=== PATIENT | female | born 1985 | race Caucasian/White ===

== ENCOUNTER 2020-08-10 16:06 | Emergency (ER) | payer BC, SELFPAY ==
--- NOTE | ~2020-08-10 | CT_ITS ---
EXAMINATION: CT abdomen pelvis w con INDICATION: Diffuse abdominal pain, nausea TECHNIQUE: Computed tomographic images of the abdomen and pelvis were obtained after the administrati on of 100 cc of Omnipaque 350 intravenous contrast. The dose-length product (DLP) was 375.66 mGy-cm. Automated exposure control and iterative reconstruction technique were employed. COMPARISON: 09/05/2013 FINDINGS: The lung bases are clear. The heart size is normal. The liver, spleen, pancreas, and adrena l glands are normal. There is mild enlargement of the proximal common bile duct which measures up to 8 mm. There is a greater than normal mucosal enhancement of the gallbladder without pericholecystic i nflammatory change identified to suggest cholecystitis. The kidneys are unremarkable. No pathological ly enlarged abdominal or pelvic lymph nodes are identified. There is no free intraperitoneal gas or e vidence of bowel obstruction. A large volume of colonic stool is present. The appendix is normal. The re is a tiny fat-containing umbilical hernia. IMPRESSION: 1. Mild enlargement of the common bile duct of unclear etiology. Reviewed, dictated and finalized at location A. 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
[2020-08-10 16:26] VITALS: BP 113/84; PULSE 103; RESP 17; TEMP 36.4; O2SAT 96
[2020-08-10 16:53] LABS: Basophils Percent Auto 0.4 % (0.2-1.2); Eosinophils Percent Auto 0.3 % (0-4.4); Hematocrit 42.1 % (37.0-47.0); Hemoglobin 13.8 g/dL (12.0-15.0); Immature Granulocyte Absolute 0.02 K/mm3 (0.00-0.031); Immature Granulocyte Percent A 0.3 % (0-0.5); Lymphocytes Absolute Auto 1.89 K/mm3 (0.9-3.2); Lymphocytes Percent Auto 27.5 % (18.3-44.2); Mean Corpuscular HGB Conc 32.8 g/dl (32-36); Mean Corpuscular Hemoglobin 29.1 pg (26-34); Mean Corpuscular Volume 88.8 fl (80-100); Mean Platelet Volume 9.7 fl (7.4-10.4); Monocytes Absolute Auto 0.6 K/mm3 (0.1-0.6); Monocytes Percent Auto 8.4 % (2.6-8.5); Neutrophils Absolute Auto 4.3 K/mm3 (1.3-6.7); Neutrophils Percent Auto 63.1 % (45.5-73.1); Platelet Count Result 266 k/mm3 (150-375); Red Blood Count 4.74 M/mm3 (4.2-5.4); Red Cell Distribution Width 12.6 % (11.5-14.5); White Blood Count 6.9 K/mm3 (4.5-10.0)
[2020-08-10 17:08] LABS: Alanine Aminotransferase 18 U/L (4-35); Albumin Level 4.5 g/dL (3.5-5.1); Alkaline Phosphatase 49 U/L (38-126); Anion Gap 10 mmol/L (8-16); Aspartate Amino Transferase 24 U/L (14-36); Bilirubin,Total 0.4 mg/dL (0.2-1.3); Blood Urea Nitrogen 11 mg/dL (7-17); Calcium 9.6 mg/dL (8.4-10.2); Carbon Dioxide 28 mmol/L (22-30); Chloride 104 mmol/L (98-107); Estimated CRCL calculation 63 ml/min; Estimated Glomerular Filt Rate > 60; Glucose 101 mg/dL (65-105); Lipase 78 U/L (23-300); Potassium 4.2 mmol/L (3.4-5.0); Sodium 142 mmol/L (137-145)
[2020-08-10 18:17] LABS: Add Urine Microscopic? YES; Appearance Urine Clear (Clear); Bacteria Urine Trace /hpf; Bilirubin Urine Negative (Negative); Blood Urine Negative (Negative); Color Urine Yellow (Yellow); Glucose Urine UA Negative (Negative); Ketones Urine Negative (Negative); Leukocyte Esterase Ur Negative LEU/UL (Negative); Mucus Urine Rare /lpf; Nitrate Urine Negative (Negative); Protein Urine 1+ mg/dL (Negative); Specific Grav Ur 1.023 (1.001-1.035); Squamous Epithelial Cell Urine Few /hpf (Few); Urobilinogen Urine Negative mg/dL (<2.0); WBC Urine 0-3 /hpf
[2020-08-10] MEDS: ONDANSETRON INJ 4 MG/2 ML VIAL IV PUSH (18:49)
[2020-08-10 18:50] VITALS: BP 105/77; PULSE 73; RESP 16
--- NOTE | 2020-08-10 19:45 | ED.ABDPAIN ---
HPI - Abdominal Pain General Chief Complaint: Abdominal Pain <Jac Jurado PA-C - Last Filed: 08/10/20 20:36> Stated Complaint: stomach pain, blood in stool <Jac Jurado PA-C - Last Filed: 08/10/20 20:36> Time Seen by Provider: 08/10/20 16:52 <Jac Jurado PA-C - Last Filed: 08/10/20 20:36> Source: patient <JAQUELIN Araujo Last Filed: 08/10/20 20:36> Mode of arrival: ambulatory <JAQUELIN Araujo Last Filed: 08/10/20 20:36> Limitations: no limitations <JAQUELIN Araujo Last Filed: 08/10/20 20:36> History of Present Illness HPI narrative: Patient presents with chief complaint of epigastric pain and nausea for the past 2 days. Patient states she is also has had 2 stools where she noticed bright red blood in the stool and with wiping. Patient denies weakness or dizziness. Patient denies fevers, chills, vomiting. Patient denies having diarrhea. Patient reports a history of hemorrhoids but states she does not have any active at this time. Patient denies any emergent symptoms. <Jac Jurado PA-C - Last Filed: 08/10/20 20:36> Related Data Allergies/Adverse Reactions: Allergies Allergy/AdvReac Type Severity Reaction Status Date / Time vancomycin Allergy Unknown Verified 11/25/12 10:50 <Jac Jurado PA-C - Last Filed: 08/10/20 20:36> Review of Systems Review of Systems: Narrative: CONSTITUTIONAL: Denies fever, chills, or sweats. EYES: Denies visual changes, redness, or discharge. ENT: Denies rhinorrhea, congestion, sore throat, or otalgia. CARDIOVASCULAR: Denies chest pain, palpitations, or edema. RESPIRATORY: Denies cough or dyspnea. GASTROINTESTINAL: Reports abdominal pain, nausea, vomiting, and blood in stool GENITOURINARY: Denies dysuria or hematuria. SKIN: Denies rash or itching. MUSCULOSKELETAL: Denies back pain, joint pain, or myalgia. NEUROLOGIC: Denies headache, numbness, dizziness, or weakness. PSYCHIATRIC: Denies anxiety or depression. <Jac Jurado PA-C - Last Filed: 08/10/20 20:36> PMFSH Family History Family History: Family History (Updated 03/10/16 @ 23:21 by DOCTOR UNKNOWN) Mother Patient's mother is in good health Hypertension Family history of elevated blood lipids Family history of alcoholism Family history of chronic obstructive pulmonary disease Sibling Patient's brother is in good health Father Family history of diabetes mellitus in first degree relative Grandparent Family history of malignant neoplasm of breast <Jac Jurado PA-C - Last Filed: 08/10/20 20:36> Social History Social History: Social History Smoking status: Never smoker Alcohol intake: never <Jac Jurado PA-C - Last Filed: 08/10/20 20:36> Exam Narrative: Exam Narrative: GENERAL: Well-appearing, well-nourished, and in no acute distress. HEAD: Normocephalic, atraumatic. EYES: PERRLA and EOMI. CHEST: Clear to auscultation. No respiratory distress. No wheezes rales or rhonchi HEART: Regular rate and rhythm. No murmur heard. Normal peripheral pulses. Rectal exam does not show external hemorrhoids. Glove is not visually bloody however Hemoccult was positive. No bleeding observed from rectum. ABDOMEN: Soft, mild epigastric tenderness with palpation, nondistended, normal active bowel sounds. EXTREMITIES: Normal range of motion. No edema. SKIN: Warm, dry, no rash. NEURO: No focal deficits. Alert and oriented x3. PSYCH: Normal mood and affect. <Jac Jurado PA-C - Last Filed: 08/10/20 20:36> Course [employer]/PA Physician Supervision For this patient encounter, I reviewed the REPA[employer] or PA documentation, treatment plan, and medical decision making; and I had [id number] time with this patient. <Linda Weber MD - Last Filed: 08/10/20 23:34> Vital Signs Vital signs: Vital Signs Temperature 36.4 C L 08/10/20 16:26 Pulse Rate 103 H 08/10/20 16:26 Respiratory Rate 17 08/10/20 16:26 Blood Pres
[2020-08-10 20:45] VITALS: BP 100/62; PULSE 72; RESP 16; O2SAT 98
== END 2020-08-10 21:00 | disposition home or self-care (01) ==
PROVIDERS: Emergency Medicine; Emergency Provider Emergency Medicine; PCP Physician Assistant
DX: R19.5 Other fecal abnormalities (principal); K83.9 Disease of biliary tract, unspecified
CPT/HCPCS: 36415; 74177; 80053; 81001; 81025; 83690; 85025; 96374; 99284; J2405; Q9967

== ENCOUNTER → 2021-08-12 09:15 | Outpatient (CLI) | payer BC, SELFPAY ==
[2021-08-13 16:52] LABS: SARS-CoV-2 RNA PCR Positive
== END ==
PROVIDERS: PCP Physician Assistant; Visit Provider Physician Assistant
DX: U07.1 COVID-19 (principal)
CPT/HCPCS: C9803; U0003; U0005

== ENCOUNTER 2022-02-01 01:25 | Day surgery (SDC) | payer BC, MEDICAID, SELFPAY ==
[2022-01-30 11:09] VITALS: BMI 27.5
--- NOTE | 2022-01-31 08:57 | PC.NURSE ---
Report to the Outpatient Waiting Room, entrance under the green pavilion located off [facility], at time __1 PM on date ___02/01/22____. OR Time: ___3 PM . - You and your visitor will be asked a series of questions to screen for COVID 19 for your protection. - Only one visitor is allowed at this time. - The patient visitor is requested to leave or wait in car when not with patient. - A mask is required within the hospital. Patients may have clear liquids (water, carbonated beverages, clear teas, apple juice) until 3 hours prior to surgery (1200 PM) with a maximum of 20 ounces. - No food from midnight until time of surgery - Infants may have breast milk until 4 hours before surgery, infant formula 6 hours prior to surgery. - Children will be allowed to drink immediately following surgery. If applicable, please bring a bottle or sippy cup to assist with drinking. Juice, water, soda, and popsicles are readily available. For infants on formula, please bring formula the day of surgery. Pacifiers are allowed. Take the following medications with a SIP of water the morning of surgery: N/A Medications to discontinue per physician N/A Date to take last dose Please no make-up, nail wolof, hairspray, perfume, deodorant, or body powder the day of surgery. No jewelry (including any body piercings) or valuables the day of surgery, leave them at home. Please take a shower or bath the night before, or the morning of, surgery with an antibacterial soap. Wear comfortable, loose fitting clothing. Children are encouraged to wear pajamas. - Jewelry must be removed prior to entering the operating room. Rings and piercings that are not removed may be cut off. - The hospital will not accept responsibility for valuables. - Please leave all valuables, including medications, at home the day of surgery. If you are going home after surgery, a licensed line haul truck driver must drive you home. - NO public transportation without another adult. - We recommend that an adult stay with you for 24 hours following discharge. - We also recommend that you do not drive, make important decision, drink alcoholic beverages, or take any drugs that were not prescribed by your health care provider for at least 24 hours after your discharge time. For Pediatric surgeries, we recommend two adults accompany the child home (only one inside the building at this time). Follow any additional instructions given to you from your surgeon. If you or anyone in your household have experienced Covid symptoms in the past week, please notify your surgeon or the nurse liaison at the phone number below for possible testing. Telephone instructions given to PT____and asked if any additional questions and then verbalized understanding. Patient advised to call surgeon office or pre surgery nurse liaison [phone] if any additional questions.
--- NOTE | 2022-02-01 08:50 | PM.IMHP ---
H&P: HPI History of Present Illness Date/Time: 02/01/22 08:50 36-year-old female 4 para [id number] presents with menstrual cycles every 2 weeks lasting 5-7 days with heavy bleeding clotting and cramping. ultrasound has been performed which showed no significant abnormalities other than moderately enlarged uterus. She declines any hormonal options and strongly desires to proceed with surgical intervention. Chief Complaint: Menometrorrhagia Review of Systems Constitutional: Constitutional: Reports as per HPI and Reports no additional constitutional complaints PMFSH Past Medical History Medical History Abnormal Pap smear of cervix 05-16-2019 LSIL; + HPV Anxiety Depression HPV in female Surgical History Surgical History History of arthroscopic knee surgery (10/28/15) History of 07/21/04 05/29/07 02/17/09 04/14/11 History of colposcopy with cervical biopsy (06/18/19) LGSIL +hpv History of ear surgery 2 right ear surgeries History of tubal ligation (12/30/21) Family History Family History Mother Patient's mother is in good health Hypertension Family history of elevated blood lipids Family history of alcoholism Family history of chronic obstructive pulmonary disease Heart disease Sibling Patient's brother is in good health Father Family history of diabetes mellitus in first degree relative Grandparent Family history of malignant neoplasm of breast maternal grandmother Social History Social History Smoking status: Never smoker Second hand tobacco smoke exposure: No Alcohol intake: never Substance use: never Substance use type: does not use Living arrangements: with family Additional living arrangements comments: [facility] 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 Gender identity (if verbalized by the patient): Female Sexual Orientation (if Verbalized by the Patient): Straight or Heterosexual Spiritual care concerns: No Meds Home Medications and Allergies Home Medications Medication Instructions Recorded Confirmed Type No Home Medications 01/03/22 01/30/22 History Allergies Allergy/AdvReac Type Severity Reaction Status Date / Time vancomycin Allergy Unknown Joint Pain Verified 01/30/22 11:08 Sulfa (Sulfonamide Allergy Rash Verified 01/30/22 11:08 Antibiotics) Exam Const: General: cooperative, healthy appearing and comfortable Resp: Effort & Inspection: normal respiratory effort Auscultation: clear to auscultation bilaterally Cardio: Rate: regular rate Rhythm: regular rhythm GI: Inspection: normal to inspection and incision Auscultation: normal bowel sounds : External Female Exam: normal external appearance Speculum Exam - Vagina: normal appearance of the vagina Speculum Exam - Cervix: normal appearance of the cervix Bimanual exam- vagina & uterus: enlarged ( 10-12 week size.) Bimanual Exam- Adnexa, other: normal adnexae Assessment and Plan Assessment and plan (1) Menometrorrhagia: Code(s): N92.1 - Excessive and frequent menstruation with irregular cycle Status: Acute Assessment and Plan: will proceed with hysteroscopy with uterine curettings. This will be followed by endometrial ablation. (2) Endometrial thickening on ultrasound: Code(s): R93.89 - Abnormal findings on diagnostic imaging of other specified body structures Status: Acute (3) Bulky or enlarged uterus: Code(s): N85.2 - Hypertrophy of uterus Status: Acute
[2022-02-01 13:03] VITALS: BP 115/76; PULSE 71; RESP 16; TEMP 36.6; O2SAT 98
[2022-02-01] MEDS: ACETAMINOPHEN 500 MG TABLET 1000 MG PO (13:04)
[2022-02-01] MEDS: LACTATED RINGERS 1,000 ML 30 ML IV CONT (13:15)
--- NOTE | 2022-02-01 13:17 | P.PNAN_ITS ---
Anes - Initial Pre Proc Eval Procedure: Operation Date: 02/01/22 15:00 Proposed Procedures p Hysteroscopy Dilation and Curettage Taylor Endometrial Ablation - Davi Perez MD Date/Time: 02/01/22 13:17 Surgeon: Davi Perez MD Pre Op Diagnosis: menometrorrhagia Patient Data Age: 36 Gender: F Height: 1.6 m Weight: 70.45 kg Allergies Allergy/AdvReac Type Severity Reaction Status Date / Time Sulfa (Sulfonamide Allergy Intermediate Rash Verified 02/01/22 13:00 Antibiotics) vancomycin Allergy Intermediate Joint Pain Verified 02/01/22 13:00 Home Medications Medication Instructions Recorded Confirmed Type No Home Medications 01/03/22 01/30/22 History Patient hx anesthesia problems: none Family hx anesthesia problems: none Results Review: All pre-operative results and documents have been reviewed as part of the pre- operative evaluation. [facility] Past Medical History Medical History Abnormal Pap smear of cervix 05-16-2019 LSIL; + HPV Anxiety Depression HPV in female Surgical History Surgical History History of arthroscopic knee surgery (10/28/15) History of 07/21/04 05/29/07 02/17/09 04/14/11 History of colposcopy with cervical biopsy (06/18/19) LGSIL +hpv History of ear surgery 2 right ear surgeries History of tubal ligation (12/30/21) Family History Family History Mother Patient's mother is in good health Hypertension Family history of elevated blood lipids Family history of alcoholism Family history of chronic obstructive pulmonary disease Heart disease Sibling Patient's brother is in good health Father Family history of diabetes mellitus in first degree relative Grandparent Family history of malignant neoplasm of breast maternal grandmother Social History Social History Smoking status: Never smoker Second hand tobacco smoke exposure: No Alcohol intake: never Substance use: never Substance use type: does not use Living arrangements: with family Additional living arrangements comments: PT LIVES WITH HER CHILEREN 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 Gender identity (if verbalized by the patient): Female Sexual Orientation (if Verbalized by the Patient): Straight or Heterosexual Spiritual care concerns: No Anes - Eval Final PreProcedure Day of Procedure 02/01/22 13:17 Patient weight: overweight Heart: regular rate and rhythm Lungs: clear to auscultation Airway: Mallampati scale class II Neurological: alert and oriented ASA classification: II Emergent: no Anesthetic plan: proceed Anesthesia type and monitoring: general GIVS and standard monitoring Results Review: All pre-operative results and documents have been reviewed as part of the pre-o perative evaluation. Informed Consent: The patient's anesthetic plan and its attendant risks and benefits were discussed with the patient/family/POA. Questions were solicited and answers provided to the satisfaction of the patient/family/POA.
--- NOTE | 2022-02-01 14:11 | WPDHPUPDATE1 ---
History and Physical Update Update Date/Time: 02/01/22 14:11 History and Physical has been reviewed, including an updated exam of the patient. There are NO changes in the patient's condition. Risks, benefits, and alternatives have been discussed and questions answered. Patient agrees to proceed with procedure.
[2022-02-01] MEDS: ceFAZolin 2 GM/D5W 50 ML 2 GM/50 ML BAG IVPB (14:12)
[2022-02-01] MEDS: KETOROLAC 30 MG/ML VIAL (*BKC) 15 MG IV PUSH (14:47)
--- NOTE | 2022-02-01 14:48 | W.PM.PROC2 ---
Procedure Note - Detailed Date of Procedure 02/01/22 Pre-op Diagnosis menometrorrhagia Post-op Diagnosis Same Procedure Performed 1. Hysteroscopy with uterine curettings 2. Endometrial ablation Surgeon Davi Perez MD Anesthesia MAC Findings Slightly thickened endometrial cavity Description of Procedure Patient prepped in usual manner for this procedure. Cervix dilated to allow hysteroscope placed revealed no significant abnormalities. Curettings were obtained with minimal tissue removed. Endometrial ablation instrument was placed and cavity assessment was performed. Instrument activated and at the end of the procedure good destruction noted throughout. Patient tolerated procedure well was sent to recovery room in stable condition. Estimated Blood Loss 50 Drains No Packing No Pathology Yes Complications No immediate complications Condition Stable Disposition PACU [facility] Billing Surgery - Charge Forward: Surgery Billing
[2022-02-01 14:56] VITALS: BP 106/68; PULSE 72; RESP 14; O2SAT 98
[2022-02-01 15:25] VITALS: BP 120/84; PULSE 74; RESP 14; O2SAT 100
[2022-02-01] MEDS: oxyCODONE HCL (*CRX) 5 MG TAB IR PO (15:37)
[2022-02-01 15:55] VITALS: BP 120/74; PULSE 49; RESP 12
[2022-02-01 16:25] VITALS: BP 108/66; PULSE 49; RESP 12
== END 2022-02-01 16:42 | disposition home or self-care (01) ==
PROVIDERS: PCP Physician Assistant; Visit Provider Obstetrics & Gynecology
PROC: 0U5B8ZZ Destruction of Endometrium, Via Natural or Artificial Opening Endoscopic (ICD-10-PCS; CPT 58563; principal; 2022-02-01 15:00)
DX: N92.1 Excessive and frequent menstruation with irregular cycle (principal); R87.612 Low grade squamous intraepithelial lesion on cytologic smear of cervix (LGSIL); N85.2 Hypertrophy of uterus
CPT/HCPCS: 58563; 88305; A9270; J0690; J1100; J1885; J2250; J2405; J2704; J3010; J7030; J7120

== ENCOUNTER 2022-05-22 11:28 | Outpatient (CLI) | payer BC, MEDICAID, SELFPAY ==
[2022-05-22 12:39] LABS: HIV 1/2 Ab P24 Ag Result Negative (Negative)
[2022-05-22 12:48] LABS: Hepatitis B Surface Antigen Negative (Negative)
[2022-05-22 12:54] LABS: HAV RESULT Negative (Negative); Hepatitis B Core IgM Result Negative (Negative)
[2022-05-22 13:05] LABS: Hepatitis C Virus Antibody Negative (Negative)
[2022-05-23 09:22] LABS: Rapid Plasma Reagin Non-Reactive (NonReactive)
[2022-05-24 14:55] LABS: Prolactin 15.8 ng/mL (***)
== END 2022-05-22 11:29 | disposition home or self-care (01) ==
PROVIDERS: PCP Physician Assistant; Visit Provider Obstetrics & Gynecology
DX: N92.1 Excessive and frequent menstruation with irregular cycle (principal); Z11.4 Encounter for screening for human immunodeficiency virus [HIV]; Z11.3 Encounter for screening for infections with a predominantly sexual mode of transmission
CPT/HCPCS: 36415; 80074; 84146; 86592; 86703; G0432

== ENCOUNTER 2023-06-07 19:22 | Emergency (ER) | payer BC, MEDICAID, SELFPAY ==
--- NOTE | ~2023-06-07 | XR_ITS ---
EXAMINATION: XR wrist LT min 3V DATE: 06/07/2023 19:38 INDICATION: Left wrist pain TECHNIQUE: Posteroanterior, ulnar deviation, oblique, and lateral views of the left wrist were obtain ed. COMPARISON: None available FINDINGS: No fracture, dislocation, or subluxation. The bones, soft tissues, and joint spaces are nor mal. IMPRESSION: 1. No acute osseous abnormality. Reviewed, dictated and finalized at location F.
--- NOTE | 2023-06-07 19:27 | ED.UPPEXIN ---
HPI - Extremity Injury (Upper) General Chief Complaint: Extremity Injury, Upper Stated Complaint: left wrist pain Time Seen by Provider: 06/07/23 19:27 Source: patient Mode of arrival: ambulatory Limitations: no limitations History of Present Illness HPI narrative: Patient is a 38 year old female that presents with left wrist pain after falling going up the stairs at her child's school. Patient reports pain in lateral wrist. Reports pain with flexion and extension but not side to side. Denies any numbness, tingling or pain to fingers. Still able move hand and fingers normally. Related Data Home Medications Medication Instructions Recorded Confirmed No Home Medications 05/22/22 06/07/23 Allergies Allergy/AdvReac Type Severity Reaction Status Date / Time Sulfa (Sulfonamide Allergy Intermediate Rash Verified 05/22/22 10:25 Antibiotics) vancomycin Allergy Intermediate Joint Pain Verified 05/22/22 10:25 Review of Systems Review of Systems: All systems reviewed & are unremarkable except as noted in HPI and below Constitutional: Constitutional: Denies body ache(s), Denies fever(s), Denies headache(s), Denies malaise and Denies weakness Eyes: Eyes: Reports no additional eye complaints and Denies loss of vision ENT: Reports system reviewed and no additional complaints, except as documented, Denies otalgia, Denies headache(s), Denies nasal discharge, Denies sinus pain and Denies sore throat Cardiovascular: Cardiovascular: Reports no additional cardiovascular complaints, Denies chest pain, Denies irregular heart rhythm and Denies dyspnea Respiratory: Respiratory: Reports no additional respiratory complaints and Denies dyspnea Gastrointestinal: Gastrointestinal: Reports no additional gastrointestinal complaints, Denies abdominal pain, Denies melena, Denies hematochezia, Denies diarrhea, Denies nausea and Denies vomiting Musculoskeletal: Musculoskeletal: Reports no additional musculoskeletal complaints, Denies back pain, Denies myalgias and Reports arthralgias Integumentary/Breasts: Skin/Breast: Reports system reviewed and no additional complaints, except as docu, Denies pruritus and Denies rash Neurologic: Reports system reviewed and no additional complaints, except as documented, Denies headache(s), Denies loss of vision and Denies weakness Psychiatric: Psychiatric: Reports no additional psychiatric complaints PMFSH Past Medical History Medical History Abnormal Pap smear of cervix 10-04-2019 LSIL; + HPV Anxiety Depression Encounter for screening examination for sexually transmitted disease HPV in female Surgical History Surgical History History of arthroscopic knee surgery (10/28/15) History of 07/21/04 05/29/07 02/17/09 04/14/11 History of colposcopy with cervical biopsy (06/18/19) CX BX and ECC Benign History of ear surgery 2 right ear surgeries History of hysteroscopy (02/01/22) Hsope D&C / Endometrial Ablation History of tubal ligation (04/14/11) History of tympanoplasty (02/16/22) right ear Family History Family History Mother Patient's mother is in good health Hypertension Family history of elevated blood lipids Family history of alcoholism Family history of chronic obstructive pulmonary disease Heart disease Sibling Patient's brother is in good health Father Family history of diabetes mellitus in first degree relative Grandparent Family history of malignant neoplasm of breast maternal grandmother Social History Social History Smoking status: Never smoker Second hand tobacco smoke exposure: No Alcohol intake: never Substance use: never Substance use type: does not use Living arrangements: other Additional living arrangements comm
[2023-06-07 19:38] VITALS: BP 124/95; PULSE 74; RESP 16; TEMP 37; O2SAT 100
== END 2023-06-07 20:06 | disposition home or self-care (01) ==
PROVIDERS: Emergency Provider Nurse Practitioner Family; PCP Physician Assistant
DX: S63.502A Unspecified sprain of left wrist, initial encounter (principal); S66.912A Strain of unspecified muscle, fascia and tendon at wrist and hand level, left hand, initial encounter; W10.9XXA Fall (on) (from) unspecified stairs and steps, initial encounter
CPT/HCPCS: 73110; 99213; G0463

== ENCOUNTER 2024-11-10 10:35 | Outpatient (CLI) | payer OTHER, MEDICAID, SELFPAY ==
--- NOTE | ~2024-11-10 | MMUS_ITS ---
EXAMINATION: MM diagnostic dharmesh BI w [facility], US breast BI complete HISTORY: Palpable abnormality on the right. TECHNIQUE: Additional 3-D tomosynthesis images of the breasts were performed and synthetic 2-D images were generated. CAD analysis was submitted and interpreted. High resolution bilateral complete breas t ultrasound was performed. COMPARISON: None BREAST PARENCHYMAL COMPOSITION: Not dense: There are scattered areas of fibroglandular density. FINDINGS: MAMMOGRAPHIC FINDINGS: There are no suspicious masses, calcifications or architectural distortion breast to suggest malignan cy ULTRASOUND: Complete US of all 4 quadrants of the breast/s and retroareolar region was reviewed. Right breast: Normal heterogeneous echotexture without focal solid or cystic mass. Left breast: At 10:00, 1 cm from the nipple there is a 5 mm cyst. No suspicious masses to suggest mal ignancy. IMPRESSION: 1. No evidence for malignancy in either breast. 2. Routine yearly screening mammogram and regular clinical breast examination are recommended. BI-RADS Category 2: Benign finding(s). Reviewed, dictated and finalized at location A. IMPRESSION: 1. No evidence for malignancy in either breast. 2. Routine yearly screening mammogram and regular clinical breast examination a re recommended. BI-RADS Category 2: Benign finding(s).
--- OUTSIDE RECORDS SUMMARY | 2024-11-10 11:52 | XMS_ITS | Data Portability ---
Author Organization [place] [facility], Main Office Address [address] [place] [address] Care Team Providers Care Outpatient Physical Therapist Name Role Phone CHELLY MELENDREZ Primary Care Provider [phone] CHELLY MELENDREZ Referring Provider [phone] Assessment No assessment recorded. Plan of Treatment Reminders Order Date Submit Date Provider Last Modified By Organization Details Last Modified Time Details Appointments None recorded. Lab PILAR (antinuclea r antibodies) screen, serum 2022 023 [facility], [address], [place], [address], 3 16:11:47 ige, total, serum 2022 023 [facility], [address], [place], [address], 3 16:11:42 C3 + C4 (complement ), serum 2022 023 [facility], [address], [place], [address], 3 16:11:37 CBC w/ auto diff 2022 023 [facility], [address], [place], [address], 3 16:11:45 CMP, serum or plasma 2022 023 [facility], [address], [place], [address], 3 16:11:40 TSH + free T4, serum 2022 023 [facility], [address], [address], [place], [address], 3 16:11:38 lipid panel, serum 2022 023 [facility] [employer] [facility], [address], [address], [place], [address], 3 16:11:39 C-reactive protein, quantitativ e, serum or plasma 2022 023 [facility] [facility], [address], [address], [place], [address], 3 16:11:46 erythrocyte sedimentati on rate by westergren method 2022 023 [facility], [address], [address], [place], [address], 3 16:11:43 rf (rheumatoid factor) + anti-ccp abs, serum 2022 023 [facility], [address], [address], [place], [address], 3 16:11:36 HbA1c (hemoglobin A1c), blood 2022 023 [facility] [facility], [address], [address], [place], [address], 3 16:11:41 Referral dredge master & immunologis t referral 2022 023 [email or web address] 4 [facility], [address] [place] [address], [address], 4 16:04:48 Procedures None recorded. Surgeries None recorded. Imaging None recorded. Medication Orders diclofenac sodium 75 mg tablet,angel yed release 2022 023 [email or web address] [id number], [address] [facility], [place], [place], [id number], 3 17:48:19 Patient TargetsNo targets recorded. Patient InstructionsNo instructions recorded. 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 A negat ana lilia PILAR IFA resul t sugge sts an PILAR-a ssoci ated autoi mmune disea se is not prese nt at this time, but is not defin itive . If there is high clini sheila suspi cion for Sjogr en's syndr ome, testi ng for anti- SS-A/ Ro antib katerina shoul d be consi dered . Anti- Afua-1 antib katerina shoul d be consi dered for clini manuel suspe cted infla mmato ry myopa joie . AC-0: Negat ana lilia Inter natio nal Conse nsus on PILAR Marute rns (http s://d oi.or g/10. 1515/ ccl- 2017- 0052) For addit ional hirar amando castro refer to http: //sandro webb.Que stDia gnost ics.c om/fa q/FAQ 177 (This link is being provi ded for infor tripp hatch/ educa siomara l purpo ses only. ) Not Available [facility] [address] [place], [address], 05/13/2021 17:46:42 05/09/20 21 05/13/2021 REFLE XIVE URINE CULTU RE reflexive urine culture NO CULTU RE INDIC ATED Not Available [address], [address], 05/13/2021 17:46:41 05/09/20 21 05/13/2021 URINA LYSIS , COMPL ETE W/REF JAIDA TO CULTU RE hyaline cast none seen /lpf none seen normal Not Available [address], [address], 05/13/2021 17:46:41 05/09/20 21 05/13/2021 URINA LYSIS , COMPL ETE W/REF JAIDA TO CULTU RE RBC 0-2 /hpf < or = 2 normal Not Available [address], [address], 05/13/2021 17:46:41 05/09/20 21 05/13/2021 URINA LYSIS , COMPL ETE W/REF JAIDA TO CULTU RE squamous epithelial cells 0-5 /hpf < or = 5 Not Available [address], [address], 05/13/2021 17:46:41 05/09/20 21 05/13/2021 URINA LYSIS , COMPL ETE W/REF JADIA TO CULTU RE bacteria none seen /hpf none seen normal Not Available [address], [address], 05/13/2021 17:46:41 05/09/20 21 05/13/2021 URINA LYSIS , COMPL ETE W/REF JAIDA TO CULTU RE color yellow yellow normal Not Available [address], [address], 05/13/2021 17:46:41 05/09/20 21 05/13/2021 URINA LYSIS , COMPL ETE W/REF JAIDA TO CULTU RE appearance clear clear normal Not Available [address], [address], 05/13/2021 17:46:41 05/09/20 21 05/13/2021 URINA LYSIS , COMPL ETE W/REF JAIDA TO CULTU RE specific gravity 1.016 1.001- 1.035 normal Not Available [address], [address], 05/13/2021 17:46:41 05/09/20 21 05/13/2021 URINA LYSIS , COMPL ETE W/REF JAIDA TO CULTU RE pH 6.0 5.0-8. 0 normal Not Available [address], [address], 05/13/2021 17:46:41 05/09/20 21 05/13/2021 URINA LYSIS , COMPL ETE W/REF JAIDA TO CULTU RE glucose negati ve negati ve normal Not Available [address], [address], 05/13/2021 17:46:41 05/09/20 21 05/13/2021 URINA LYSIS , COMPL ETE W/REF JAIDA TO CULTU RE bilirubin negati ve negati ve normal Not Available [address], [address], 05/13/2021 17:46:41 05/09/20 21 05/13/2021 URINA LYSIS , COMPL ETE W/REF JAIDA TO CULTU RE ketones negati ve negati ve normal Not Available [address], [address], 05/13/2021 17:46:41 05/09/20 21 05/13/2021 URINA LYSIS , COMPL ETE W/REF JAIDA TO CULTU RE occult blood trace negati ve abnormal Not Available [address] [place], [address], 05/13/2021 17:46:41 05/09/20 21 05/13/2021 URINA LYSIS , COMPL ETE W/REF JAIDA TO CULTU RE protein negati ve negati ve normal Not Available [address], [address], 05/13/2021 17:46:41 05/09/20 21 05/13/2021 URINA LYSIS , COMPL ETE W/REF JAIDA TO CULTU RE nitrite negati ve negati ve normal Not Available [address], [address], 05/13/2021 17:46:41 05/09/20 21 05/13/2021 URINA LYSIS , COMPL ETE W/REF JAIDA TO CULTU RE leukocyte esterase negati ve negati ve normal Not Available [address], [address], 05/13/2021 17:46:41 05/09/20 21 05/13/2021 URINA LYSIS , COMPL ETE W/REF JAIDA TO CULTU RE WBC none seen /hpf < or = 5 normal Not Available [address], [address], 05/13/2021 17:46:41 05/09/20 21 05/13/2021 CBC (INCL UDES DIFF/ PLT) white blood cell count 5.5 thous and/u L 3.8-10 .8 normal Not Available [address], [address], 05/13/2021 17:46:40 05/09/20 21 05/13/2021 CBC (INCL UDES DIFF/ PLT) red blood cell count 4.45 carlos alberto on/uL 3.80-5 .10 normal Not Available [address], [address], 05/13/2021 17:46:40 05/09/20 21 05/13/2021 CBC (INCL UDES DIFF/ PLT) hemoglobin 12.5 g/dL 11.7-1 5.5 normal Not Available [address], [address], 05/13/2021 17:46:40 05/09/20 21 05/13/2021 CBC (INCL UDES DIFF/ PLT) hematocrit 39.1 % 35.0-4 5.0 normal Not Available [address], [address], 05/13/2021 17:46:40 05/09/20 21 05/13/2021 CBC (INCL UDES DIFF/ PLT) MCV 87.9 fL 80.0-1 00.0 normal Not Available [address], [address], 05/13/2021 17:46:40 05/09/20 21 05/13/2021 CBC (INCL UDES DIFF/ PLT) MCH 28.1 pg 27.0-3 3.0 normal Not Available [address], [address], 05/13/2021 17:46:40 05/09/20 21 05/13/2021 CBC (INCL UDES DIFF/ PLT) MCHC 32.0 g/dL 32.0-3 6.0 normal Not Available [address], [address], 05/13/2021 17:46:40 05/09/20 21 05/13/2021 CBC (INCL UDES DIFF/ PLT) RDW 13.0 % 11.0-1 5.0 normal Not Available [address], [address], 05/13/2021 17:46:40 05/09/20 21 05/13/2021 CBC (INCL UDES DIFF/ PLT) platelet count 286 thous and/u L 140-40 0 normal Not Available [address], [address], 05/13/2021 17:46:40 05/09/20 21 05/13/2021 CBC (INCL UDES DIFF/ PLT) MPV 10.4 fL 7.5-12 .5 normal Not Available [address], [address], 05/13/2021 17:46:40 05/09/20 21 05/13/2021 CBC (INCL UDES DIFF/ PLT) absolute neutrophils 3020 cells /uL 1500-7 800 normal Not Available [address], [address], 05/13/2021 17:46:40 05/09/20 21 05/13/2021 CBC (INCL UDES DIFF/ PLT) absolute lymphocytes 1914 cells /uL 850-39 00 normal Not Available [address], [address], 05/13/2021 17:46:40 05/09/20 21 05/13/2021 CBC (INCL UDES DIFF/ PLT) absolute monocytes 457 cells /uL 200-95 0 normal Not Available [address], [address], 05/13/2021 17:46:40 05/09/20 21 05/13/2021 CBC (INCL UDES DIFF/ PLT) absolute eosinophils 72 cells /uL 15-500 normal Not Available [address], [address], 05/13/2021 17:46:40 05/09/20 21 05/13/2021 CBC (INCL UDES DIFF/ PLT) absolute basophils 39 cells /uL 0-200 normal Not Available [address], [address], 05/13/2021 17:46:40 05/09/20 21 05/13/2021 CBC (INCL UDES DIFF/ PLT) neutrophils 54.9 % normal Not Available [address], [address], 05/13/2021 17:46:40 05/09/20 21 05/13/2021 CBC (INCL UDES DIFF/ PLT) lymphocytes 34.8 % normal Not Available [address], [address], 05/13/2021 17:46:40 05/09/20 21 05/13/2021 CBC (INCL UDES DIFF/ PLT) monocytes 8.3 % normal Not Available [address], [address], 05/13/2021 17:46:40 05/09/20 21 05/13/2021 CBC (INCL UDES DIFF/ PLT) eosinophils 1.3 % normal Not Available [address], [address], 05/13/2021 17:46:40 05/09/20 21 05/13/2021 CBC (INCL UDES DIFF/ PLT) basophils 0.7 % normal Not Available [address], [address], 05/13/2021 17:46:40 05/09/20 21 05/13/2021 SED RATE BY MODIF IED FRAN BENSONREN sed rate by modified westblaneren 11 mm/h < or = 20 normal Not Available [address], [address], 05/13/2021 17:46:39 05/09/20 21 05/13/2021 TSH W/REF JAIDA TO FT4 TSH w/reflex to FT4 1.60 mIU/L normal Refer ence Range > or = 20 Years 0.40- 4.50 Pregn reginald Range s First trime ster 0.26- 2.66 Secon d trime ster 0.55- 2.73 Third trime ster 0.43- 2.91 Not Available [address], [address], 05/13/2021 17:46:38 05/09/20 21 05/13/2021 HEMOG LOBIN A1C hemoglobin A1C 5.3 %_of_ total _HGB <5.7 normal Not Available [address], [address], 05/13/2021 17:46:36 05/09/20 21 05/13/2021 COMPR EHENS ANA LILIA METAB OLIC PANEL glucose 93 mg/dL 65-99 normal Fasti ng refer ence inter saima Not Available [address], [address], 05/13/2021 17:46:35 05/09/20 21 05/13/2021 COMPR EHENS ANA LILIA METAB OLIC PANEL urea nitrogen (BUN) 9 mg/dL 7-25 normal Not Available [address], [address], 05/13/2021 17:46:35 05/09/20 21 05/13/2021 COMPR EHENS ANA LILIA METAB OLIC PANEL creatinine 0.75 mg/dL 0.50-1 .10 normal Not Available [address], [address], 05/13/2021 17:46:35 05/09/20 21 05/13/2021 COMPR EHENS ANA LILIA METAB OLIC PANEL eGFR non-afr. somali 102 mL/mi n/1.7 3m2 > or = 60 normal Not Available [address], [address], 05/13/2021 17:46:35 05/09/20 21 05/13/2021 COMPR EHENS ANA LILIA METAB OLIC PANEL potassium 4.0 mmol/ L 3.5-5. 3 normal Not Available [address] [place], [address], 05/13/2021 17:46:35 05/09/20 21 05/13/2021 COMPR EHENS ANA LILIA METAB OLIC PANEL eGFR 118 mL/mi n/1.7 3m2 > or = 60 normal Not Available [address], [address], 05/13/2021 17:46:35 05/09/20 21 05/13/2021 COMPR EHENS ANA LILIA METAB OLIC PANEL BUN/creatini ne ratio not applic able (calc ) 6-22 Not Available [address], [address], 05/13/2021 17:46:35 05/09/20 21 05/13/2021 COMPR EHENS ANA LILIA METAB OLIC PANEL sodium 139 mmol/ L 135-14 6 normal Not Available [address], [address], 05/13/2021 17:46:35 05/09/20 21 05/13/2021 COMPR EHENS ANA LILIA METAB OLIC PANEL chloride 104 mmol/ L 98-110 normal Not Available [address], [address], 05/13/2021 17:46:35 05/09/20 21 05/13/2021 COMPR EHENS ANA LILIA METAB OLIC PANEL carbon dioxide 29 mmol/ L 20-32 normal Not Available [address], [address], 05/13/2021 17:46:35 05/09/20 21 05/13/2021 COMPR EHENS ANA LILIA METAB OLIC PANEL calcium 9.5 mg/dL 8.6-10 .2 normal Not Available [address], [address], 05/13/2021 17:46:35 05/09/20 21 05/13/2021 COMPR EHENS ANA LILIA METAB OLIC PANEL protein, total 7.0 g/dL 6.1-8. 1 normal Not Available [address], [address], 05/13/2021 17:46:35 05/09/20 21 05/13/2021 COMPR EHENS ANA LILIA METAB OLIC PANEL albumin 4.1 g/dL 3.6-5. 1 normal Not Available [address], [address], 05/13/2021 17:46:35 05/09/20 21 05/13/2021 COMPR EHENS ANA LILIA METAB OLIC PANEL globulin 2.9 g/dL_ (calc ) 1.9-3. 7 normal Not Available [address], [address], 05/13/2021 17:46:35 05/09/20 21 05/13/2021 COMPR EHENS ANA LILIA METAB OLIC PANEL albumin/glob ulin ratio 1.4 (calc ) 1.0-2. 5 normal Not Available [address], [address], 05/13/2021 17:46:35 05/09/20 21 05/13/2021 COMPR EHENS ANA LILIA METAB OLIC PANEL bilirubin, total 0.4 mg/dL 0.2-1. 2 normal Not Available [address], [address], 05/13/2021 17:46:35 05/09/20 21 05/13/2021 COMPR EHENS ANA LILIA METAB OLIC PANEL alkaline phosphatase 46 U/L 31-125 normal Not Available [address], [address], 05/13/2021 17:46:35 05/09/20 21 05/13/2021 COMPR EHENS ANA LILIA METAB OLIC PANEL AST 13 U/L 10-30 normal Not Available [address], [place], [address], 05/13/2021 17:46:35 05/09/20 21 05/13/2021 COMPR EHENS ANA LILIA METAB OLIC PANEL ALT 14 U/L 6-29 normal Not Available [facility] [address] [address], [place], [address], 05/13/2021 17:46:35 05/09/20 21 05/13/2021 HS CRP hs CRP 9.0 mg/L high Refer ence Range Optim al <1.0 Shamar padilla PS et al. Endoc r Pract .2017 ;23(S uppl 2):1- 87. For ages >17 Years : hs-CR P mg/L Risk Accor ding to AHA/C DC Guide lines <1.0 Lower relat ana lilia cardi ovasc ular risk. 1.0-3 .0 [place] ge relat ana lilia cardi ovasc ular risk. 3.1-1 0.0 Highe r relat ana lilia cardi ovasc ular risk. Consi dave retes ting in 1 to 2 weeks to exclu de a benig n trans ient eleva tion in the basel ine CRP value secon mary to infec tion or infla mmati on. >10.0 Persi stent eleva tion, upon retes ting, may be assoc iated with infec tion and infla mmati on. Not Available [facility] [address] [address], [place], [address], 05/13/2021 17:46:35 05/09/20 21 05/13/2021 LIPID PANEL , STAND OSCAR non HDL cholesterol 156 mg/dL _(sheila c) <130 high For patie nts with diabe john plus 1 major ASCVD risk facto r, treat ing to a non-H DL-C goal of <100 mg/dL (LDL- C of <70 mg/dL ) is consi dered a thera peuti c optio n. Not Available [facility] [address] [place], [address], 05/13/2021 17:46:34 05/09/20 21 05/13/2021 LIPID PANEL , STAND OSCAR cholesterol, total 202 mg/dL <200 high Not Available [address], [address], 05/13/2021 17:46:34 05/09/20 21 05/13/2021 LIPID PANEL , STAND OSCAR HDL cholesterol 46 mg/dL > or = 50 low Not Available [place] [address] [facility] [place], [address], 05/13/2021 17:46:34 05/09/20 21 05/13/2021 LIPID PANEL , STAND OSCAR triglyceride s 105 mg/dL <150 normal Not Available [address], [address], 05/13/2021 17:46:34 05/09/20 21 05/13/2021 LIPID PANEL , STAND OSCAR LDL-choleste rol 135 mg/dL _(sheila c) high Refer ence range : <100 Darren able range <100 mg/dL for prima ry preve ntion ; <70 mg/dL for patie nts with CHD or diabe tic patie nts with > or = 2 CHD risk facto rs. LDL-C is now calcu lated using the Juanita n-Hop kins calcu william n, which is a valid ated novel baljito sania mcwilliams accur acy than the Fried preston equat ion in the estim ation of LDL-C . Juanita webb SS et al. DEVONTE. 2013; 310(1 9): 2061- 2068 (http ://ed ucati on.Qu mackenzieDi Acoustic Technologiess. com/f aq/FA Q164) Not Available [place] [address] [place], [address], 05/13/2021 17:46:34 05/09/20 21 05/13/2021 LIPID PANEL , STAND OSCAR chol/HDLC ratio 4.4 (calc ) <5.0 normal Not Available [facility] [address] [place], [address], 05/13/2021 17:46:34 05/09/20 21 05/13/2021 RHEUM ATOID FACTO R rheumatoid factor <14 IU/mL <14 normal Not Available [facility] [address] [place], [address], 05/13/2021 17:46:42 07/28/20 22 07/28/2022 urina lysis , dipst ick Leukocytes (reference range: negative alen/ l) Negati ve Not Available [facility] [place] [address], [place], [address], 07/28/2022 12:52:52 07/28/20 22 07/28/2022 urina lysis , dipst ick Nitrite (reference rage: negative mg/dl) positi ve Not Available [facility] [place] [address], [place], [address], 07/28/2022 12:52:52 07/28/20 22 07/28/2022 urina lysis , dipst ick Urobilinogen (reference range: 0.2-1 mg/dl) 0.2 Not Available [facility] [place] [address], [place], [address], 07/28/2022 12:52:52 07/28/20 22 07/28/2022 urina lysis , dipst ick Protein (reference range: negative mg/dl) Negati ve Not Available [facility] [place] [address], [place], [address], 07/28/2022 12:52:52 07/28/20 22 07/28/2022 urina lysis , dipst ick pH (reference range: 5-7) 6.0 Not Available [facility] [place] [address], [place], [address], 07/28/2022 12:52:52 07/28/20 22 07/28/2022 urina lysis , dipst ick Blood (reference range: negative Shankar/ l) Small Not Available [facility] [place] [address], [place], [address], 07/28/2022 12:52:52 07/28/20 22 07/28/2022 urina lysis , dipst ick Specific [place] (reference range: 1.005-1.030) 1.025 Not Available [facility] [place] [address], [place], [address], 07/28/2022 12:52:52 07/28/20 22 07/28/2022 urina lysis , dipst ick Ketone (reference range: negative mg/dl) Negati ve Not Available [facility] [place] [address], [place], [address], 07/28/2022 12:52:52 07/28/20 22 07/28/2022 urina lysis , dipst ick Bilirubin (reference range: negative mg/dl) Negati ve Not Available [facility] [place] [address], [place], [address], 07/28/2022 12:52:52 07/28/20 22 07/28/2022 urina lysis , dipst ick Glucose (reference range: negative mg/dl) Negati ve Not Available [facility] [place] [address], [place], [address], 07/28/2022 12:52:52 07/28/20 22 07/28/2022 urina lysis , dipst ick Appearance Clear Not Available [facility] [place] [address], [place], [address], 07/28/2022 12:52:52 07/28/20 22 07/28/2022 urina lysis , dipst ick Color Yellow Not Available [facility] [place] [address], [place], [address], 07/28/2022 12:52:52 08/02/20 23 08/07/2023 RHEUM ATOID ARTHR ITIS DIAGN OSTIC PANEL 1 rheumatoid factor <14 IU/mL <14 normal Not Available [facility] [employer] [facility] [address] [place], [address], 08/07/2023 16:11:36 08/02/20 23 08/07/2023 RHEUM ATOID ARTHR ITIS DIAGN OSTIC PANEL 1 cyclic citrullinate d peptide (ccp) Ab (IgG) <16 units normal Refer ence Range Negat ana lilia: <20 Weak Posit ana lilia: 20-39 Moder ate Posit ana lilia: 40-59 Stron g Posit ana lilia: >59 Not Available [employer] [facility] [address] [place], [address], 08/07/2023 16:11:36 08/02/20 23 08/07/2023 RHEUM ATOID ARTHR ITIS DIAGN OSTIC PANEL 1 interpretati on These serol ogic resul ts may be found in 10-20 % of patie nts with polya rthri tis that is clini manuel and radio logic ally indis tingu ishab le from RA. Not Available [facility] [address] [place], [address], 08/07/2023 16:11:36 08/02/20 23 08/07/2023 COMPL EMENT COMP C3 + C4 complement component C3C 132 mg/dL 83-193 normal Not Available [address], [address], 08/07/2023 16:11:37 08/02/20 23 08/07/2023 COMPL EMENT COMP C3 + C4 complement component C4C 29 mg/dL 15-57 normal Not Available [address], [address], 08/07/2023 16:11:37 08/02/20 23 08/07/2023 TSH+F REE T4 TSH 1.79 mIU/L normal Refer ence Range > or = 20 Years 0.40- 4.50 Pregn reginald Range s First trime ster 0.26- 2.66 Secon d trime ster 0.55- 2.73 Third trime ster 0.43- 2.91 Not Available [address], [address], 08/07/2023 16:11:38 08/02/20 23 08/07/2023 TSH+F REE T4 T4, free 0.9 NG/dL 0.8-1. 8 normal Not Available [address], [address], 08/07/2023 16:11:38 08/02/20 23 08/07/2023 LIPID PANEL WITH RATIO S cholesterol, total 197 mg/dL <200 normal Not Available [address], [address], 08/07/2023 16:11:39 08/02/20 23 08/07/2023 LIPID PANEL WITH RATIO S HDL cholesterol 54 mg/dL > or = 50 normal Not Available [address], [address], 08/07/2023 16:11:39 08/02/20 23 08/07/2023 LIPID PANEL WITH RATIO S triglyceride s 74 mg/dL <150 normal Not Available [address], [address], 08/07/2023 16:11:39 08/02/20 23 08/07/2023 LIPID PANEL WITH RATIO S LDL-choleste rol 126 mg/dL _(sheila c) high Refer ence range : <100 Darren able range <100 mg/dL for prima ry preve ntion ; <70 mg/dL for patie nts with CHD or diabe tic patie nts with > or = 2 CHD risk facto rs. LDL-C is now calcu lated using the Juanita n-Hop kins calcu william n, which is a valid ated novel metho d provi ding crystal r accur acy than the Fried preston equat ion in the estim ation of LDL-C . Juanita webb SS et al. DEVONTE. 2013; 310(1 9): 2061- 2068 (http ://ed ucati on.[employer]. com/f aq/FA Q164) Not Available [employer] [place] [address], [address], 08/07/2023 16:11:39 08/02/20 23 08/07/2023 LIPID PANEL WITH RATIO S chol/HDLC ratio 3.6 (calc ) <5.0 normal Not Available [employer] [facility] [address] [place] [address], [address], 08/07/2023 16:11:39 08/02/20 23 08/07/2023 LIPID PANEL WITH RATIO S LDL/HDL ratio 2.3 (calc ) Below avera ge Risk: <2.34 [place] ge Risk: 2.35- 4.12 Moder ate Risk: 4.13- 5.56 High Risk: >5.57 Not Available [employer] [facility] [address] [place], [address], 08/07/2023 16:11:39 08/02/20 23 08/07/2023 LIPID PANEL WITH RATIO S non HDL cholesterol 143 mg/dL _(sheila c) <130 high For patie nts with diabe john plus 1 major ASCVD risk facto r, treat ing to a non-H DL-C goal of <100 mg/dL (LDL- C of <70 mg/dL ) is ricci zapata optio n. Not Available [address], [address], 08/07/2023 16:11:39 08/02/20 23 08/07/2023 COMPR EHENS ANA LILIA METAB OLIC PANEL glucose 91 mg/dL 65-99 normal Fasti ng refer ence inter saima Not Available [address], [address], 08/07/2023 16:11:40 08/02/20 23 08/07/2023 COMPR EHENS ANA LILIA METAB OLIC PANEL urea nitrogen (BUN) 9 mg/dL 7-25 normal Not Available [address], [address], 08/07/2023 16:11:40 08/02/20 23 08/07/2023 COMPR EHENS ANA LILIA METAB OLIC PANEL creatinine 0.70 mg/dL 0.50-0 .97 normal Not Available [address], [address], 08/07/2023 16:11:40 08/02/20 23 08/07/2023 COMPR EHENS ANA LILIA METAB OLIC PANEL eGFR 113 mL/mi n/1.7 3m2 > or = 60 normal Not Available [address], [address], 08/07/2023 16:11:40 08/02/20 23 08/07/2023 COMPR EHENS ANA LILIA METAB OLIC PANEL BUN/creatini ne ratio SEE NOTE: (calc ) 6-22 Not Repor benjamin: BUN and Creat inine are withi n refer ence range . Not Available [address] [place], [address], 08/07/2023 16:11:40 08/02/20 23 08/07/2023 COMPR EHENS ANA LILIA METAB OLIC PANEL sodium 139 mmol/ L 135-14 6 normal Not Available [address], [address], 08/07/2023 16:11:40 08/02/20 23 08/07/2023 COMPR EHENS ANA LILIA METAB OLIC PANEL potassium 4.0 mmol/ L 3.5-5. 3 normal Not Available [address], [address], 08/07/2023 16:11:40 08/02/20 23 08/07/2023 COMPR EHENS ANA LILIA METAB OLIC PANEL chloride 102 mmol/ L 98-110 normal Not Available [address], [address], 08/07/2023 16:11:40 08/02/20 23 08/07/2023 COMPR EHENS ANA LILIA METAB OLIC PANEL carbon dioxide 28 mmol/ L 20-32 normal Not Available [address], [address], 08/07/2023 16:11:40 08/02/20 23 08/07/2023 COMPR EHENS ANA LILIA METAB OLIC PANEL calcium 9.3 mg/dL 8.6-10 .2 normal Not Available [address], [address], 08/07/2023 16:11:40 08/02/20 23 08/07/2023 COMPR EHENS ANA LILIA METAB OLIC PANEL protein, total 7.3 g/dL 6.1-8. 1 normal Not Available [address], [address], 08/07/2023 16:11:40 08/02/20 23 08/07/2023 COMPR EHENS ANA LILIA METAB OLIC PANEL albumin 4.4 g/dL 3.6-5. 1 normal Not Available [address], [address], 08/07/2023 16:11:40 08/02/20 23 08/07/2023 COMPR EHENS ANA LILIA METAB OLIC PANEL globulin 2.9 g/dL_ (calc ) 1.9-3. 7 normal Not Available [address] [address] [place], [address], 08/07/2023 16:11:40 08/02/20 23 08/07/2023 COMPR EHENS ANA LILIA METAB OLIC PANEL albumin/glob ulin ratio 1.5 (calc ) 1.0-2. 5 normal Not Available [address], [address], 08/07/2023 16:11:40 08/02/20 23 08/07/2023 COMPR EHENS ANA LILIA METAB OLIC PANEL bilirubin, total 0.3 mg/dL 0.2-1. 2 normal Not Available [address] [address] [place], [address], 08/07/2023 16:11:40 08/02/20 23 08/07/2023 COMPR EHENS ANA LILIA METAB OLIC PANEL alkaline phosphatase 47 U/L 31-125 normal Not Available [address] [address] [place], [address], 08/07/2023 16:11:40 08/02/20 23 08/07/2023 COMPR EHENS ANA LILIA METAB OLIC PANEL AST 16 U/L 10-30 normal Not Available [address] [address] [place], [address], 08/07/2023 16:11:40 08/02/20 23 08/07/2023 COMPR EHENS ANA LILIA METAB OLIC PANEL ALT 15 U/L 6-29 normal Not Available [address] [address] [place], [address], 08/07/2023 16:11:40 08/02/20 23 08/07/2023 HEMOG LOBIN A1C hemoglobin A1C 5.3 %_of_ total _HGB <5.7 normal For the purpo se of heather collins for the prese nce of diabe john: <5.7% Consi stent with the absen ce of diabe john 5.7-6 .4% Consi stent with incre ased risk for diabe john (pred iabet es) > or =6.5% Consi stent with diabe john This assay resul t is consi stent with a decre ased risk of diabe john. Curre ntly, no conse nsus exist s remington haider use of hemog lobin A1c for diagn osis of diabe john in child yaneth. Accor ding to Ameri can Diabe john Assoc iatio n (ADA) guide lines , hemog lobin A1c <7.0% repre sents optim al contr ol in non-p regna nt diabe tic patie nts. Diffe rent metri cs may apply to speci fic patie nt popul ation s. [facility] al [facility] in Diabe john(A DA). Not Available [address] [place], [address], 08/07/2023 16:11:41 08/02/20 23 08/07/2023 IMMUN OGLOB ULIN E immunoglobul in E 12 kU/L <or=11 4 normal Not Available [address], [address], 08/07/2023 16:11:42 08/02/20 23 08/07/2023 SED RATE BY MODIF IED WESTE RGREN sed rate by modified westergren 9 mm/h < or = 20 normal Not Available [facility] [address], [address], 08/07/2023 16:11:43 08/02/20 23 08/07/2023 CBC (INCL UDES DIFF/ PLT) white blood cell count 6.3 thous and/u L 3.8-10 .8 normal Not Available [facility] [address], [address], 08/07/2023 16:11:44 08/02/20 23 08/07/2023 CBC (INCL UDES DIFF/ PLT) red blood cell count 4.57 carlos alberto on/uL 3.80-5 .10 normal Not Available [address], [address], 08/07/2023 16:11:44 08/02/20 23 08/07/2023 CBC (INCL UDES DIFF/ PLT) hemoglobin 13.1 g/dL 11.7-1 5.5 normal Not Available [address], [address], 08/07/2023 16:11:44 08/02/20 23 08/07/2023 CBC (INCL UDES DIFF/ PLT) hematocrit 39.9 % 35.0-4 5.0 normal Not Available [address], [address], 08/07/2023 16:11:44 08/02/20 23 08/07/2023 CBC (INCL UDES DIFF/ PLT) MCV 87.3 fL 80.0-1 00.0 normal Not Available [address], [address], 08/07/2023 16:11:44 08/02/20 23 08/07/2023 CBC (INCL UDES DIFF/ PLT) MCH 28.7 pg 27.0-3 3.0 normal Not Available [address], [address], 08/07/2023 16:11:44 08/02/20 23 08/07/2023 CBC (INCL UDES DIFF/ PLT) MCHC 32.8 g/dL 32.0-3 6.0 normal Not Available [address], [address], 08/07/2023 16:11:44 08/02/20 08/07/2023 CBC (INCL UDES DIFF/ PLT) RDW 12.1 % 11.0-1 5.0 normal Not Available [address], [address], 08/07/2023 16:11:44 08/02/20 23 08/07/2023 CBC (INCL UDES DIFF/ PLT) platelet count 253 thous and/u L 140-40 0 normal Not Available [address], [address], 08/07/2023 16:11:44 08/02/20 23 08/07/2023 CBC (INCL UDES DIFF/ PLT) MPV 10.3 fL 7.5-12 .5 normal Not Available [address], [address], 08/07/2023 16:11:44 08/02/20 23 08/07/2023 CBC (INCL UDES DIFF/ PLT) absolute neutrophils 4019 cells /uL 1500-7 800 normal Not Available [address], [address], 08/07/2023 16:11:44 08/02/20 23 08/07/2023 CBC (INCL UDES DIFF/ PLT) absolute lymphocytes 1770 cells /uL 850-39 00 normal Not Available [address], [address], 08/07/2023 16:11:44 08/02/20 23 08/07/2023 CBC (INCL UDES DIFF/ PLT) absolute monocytes 391 cells /uL 200-95 0 normal Not Available [address], [address], 08/07/2023 16:11:44 08/02/20 23 08/07/2023 CBC (INCL UDES DIFF/ PLT) absolute eosinophils 101 cells /uL 15-500 normal Not Available [address], [address], 08/07/2023 16:11:44 08/02/20 23 08/07/2023 CBC (INCL UDES DIFF/ PLT) absolute basophils 19 cells /uL 0-200 normal Not Available [address], [address], 08/07/2023 16:11:44 08/02/20 23 08/07/2023 CBC (INCL UDES DIFF/ PLT) neutrophils 63.8 % normal Not Available [address], [address], 08/07/2023 16:11:44 08/02/20 23 08/07/2023 CBC (INCL UDES DIFF/ PLT) lymphocytes 28.1 % normal Not Available [address], [address], 08/07/2023 16:11:44 08/02/20 23 08/07/2023 CBC (INCL UDES DIFF/ PLT) monocytes 6.2 % normal Not Available [address], [address], 08/07/2023 16:11:44 08/02/20 23 08/07/2023 CBC (INCL UDES DIFF/ PLT) eosinophils 1.6 % normal Not Available [address], [address], 08/07/2023 16:11:44 08/02/20 23 08/07/2023 CBC (INCL UDES DIFF/ PLT) basophils 0.3 % normal Not Available [address], [address], 08/07/2023 16:11:44 08/02/20 23 08/07/2023 C-CAS CTIVE PROTE IN C-reactive protein 9.7 mg/L <8.0 high Not Available [address], [address], 08/07/2023 16:11:46 08/02/20 23 08/07/2023 PILAR MULTI PLEX W/REF JAIDA 11 AB CASCA DE anachoice(R) screen NEGATI VE negati ve normal A negat ana lilia PILAR Multi plex, with Refle x to 11 Antib katerina Casca de indic ates the absen ce of detec table antib odies to compo nent [place]ohn consi sting of doubl e stran ded DNA (dsDN A), chrom atin, ribon ucleo prote in (HEALTH AND SAFETY ADVISOR) , Mclean /HEALTH AND SAFETY ADVISOR (Sm/R ROTARY SHEAR OPERATOR), Mclean (Sm), SS-A, SS-B, Afua-1, centr omere B, Scl-7 0 and ribos omal P. A negat ana lilia resul t shoul d be inter prete d in the felipe xt of the clini sheila and labor atory findi ngs and does not rule out autoi mmune disea se amina cteri zed by other autoa ntibo dy speci ficit ies such as rheum atoid arthr itis, autoi mmune hepat itis, prima ry bilia ry cirrh osis, autoi mmune thyro iditi s, Call on's disea se, perni cious anemi a, autoi mmune neuro pathi es, vascu litis , malick c disea se, and bullo us disea se. For addit ional infor amando castro e refer to http: //[facility] jag webb.Tuan stDia gnost ics.c om/fa q/FAQ 177 (This link is being provi ded for infor tripp hatch/ educmelquiades deng purpo ses only. ) Not Available [facility] [address], [place], [address], 08/07/2023 16:11:47 06/14/2006/07/2023 XR, wrist No observ ation record ed. [email or web address] [id number] [facility] , [place], [address], 06/14/2023 13:58:49 Result Notes None recorded. Problems Name Problem SNOMED Code Status Onset Date Resolution Date Notes Provider Name and Address Organization Details Recorded Time Mixed anxiety and depressive disorder 911104412 Active 2021 Not Available [facility] 3 10:42:43 Eruption 871901202 Active 2021 Not Available [facility] 3 10:42:43 Nausea, vomiting and diarrhea 7998492 Active 2021 Not Available [facility] 3 10:42:43 Current tear of medial cartilage AND/OR meniscus of knee Active Not Available [facility] 3 10:42:43 Lateral epicondyli tis of left humerus 8304321237140 00 Active 2021 Not Available [facility] 3 10:42:43 Acute urinary tract infection 939178290 Active 2021 Not Available [facility] 3 10:42:43 Paronychia of finger 401038715 Active 2021 Not Available [facility] 3 10:42:43 Fatigue 45207645 Active 2021 Not Available [facility] 3 10:42:43 Bacterial conjunctiv itis 770589114 Active 2022 [employer] [place], [employer] [facility] 3 09:02:44 Upper respirator y infection 30618573 Active 2022 [employer] [facility] [address], [place], [address] , [employer] [facility] 3 12:46:21 Cough 15574637 Active 2022 BELTRAN Allan [address], [place], [address] , [employer] 3 10:42:31 Medial epicondyli tis of left elbow joint 5653255143989 07 Active 2022 [employer] Allan [address], [place], [address] , [employer] [facility] 3 10:30:46 Multiple joint pain 04564312 Active 2022 BELTRAN Allan [address] [facility], [facility] [address], [place], [address] , [employer] 3 10:31:06 Idiopathic urticaria 80286438 Active 2022 BELTRAN Allan [address] [facility], [facility] [address], [place], [address] , [employer] 3 10:31:20 Problem Notes None recorded. Procedures Surgical History Date Name Laterality Status Provider Name and Address Organization Details Recorded Time 02/17/20 22 ENT Surgery completed Not Available [facility] 10/11/2022 10:41:01 02/17/20 22 Reconstructive Surgery completed Not Available [facility] 10/11/2022 10:41:01 02/02/20 22 hysteroscopy completed Not Available [facility] 10/11/2022 10:41:01 section completed Not Available [facility] 10/11/2022 10:41:01 section completed Not Available [facility] 10/11/2022 10:41:01 ENT Procedure completed Not Available [facility] 10/11/2022 10:41:01 section completed Not Available [facility] 10/11/2022 10:41:01 section completed Not Available [facility] 10/11/2022 10:41:01 Orthopedic Surgery completed Not Available [facility] 10/11/2022 10:41:01 ENT Procedure completed Not Available [facility] 10/11/2022 10:41:01 [employer] Surgery completed Not Available [facility] 10/11/2022 10:41:01 Imaging Results Imaging Date Name Status LastModified by Organiz ation Details LastModified Time 06/07/2023 XR, wrist completed [email or web address] [facility] [address] [facility] , [place], [address], 06/14/2023 13:58:49 Procedure Notes None recorded. Medical Equipment None Reported. Allergies Allergen ID Allergen Name Allergen Category Reaction Reaction Severity Criticality Documentation Date Start Date Code Code System Note Provider Name and Address Organization Details Recorded Time vancomyci n medicatio n arthralgi a (joint pain) severe Not available 10/11/2022 25840 RxNorm Not Available [facility] 3 10:45:59 [address] Substance with sulfonami de structure and antibacte rial mechanism of action (substanc e) medicatio n rash severe Not available 10/11/2022 90213 8003 SNOMED Not Available [facility] 3 10:46:00 Medications Name Sig Start Date Stop Date Status Note LastModified by Organization Details LastModified Time cyclobenzap rine 10 mg tablet TAKE 1 TABLET BY MOUTH EVERY 8 HOURS CUT IN HALF IF TO SEDATING 08/02 completed Not Available Not Available Not Available amoxicillin 500 mg capsule 05/16 completed Not Available Not Available Not Available doxycycline hyclate 100 mg capsule Take 1 capsule twice a day by oral route with meals. active Not Available Not Available No t Available ibuprofen 800 mg tablet TAKE 1 TABLET BY MOUTH THREE TIMES DAILY NEEDED FOR PAIN 08/02 completed Not Available Not Available Not Available benzonatate 200 mg capsule Take 1 capsule 3 times a day by oral route. active Not Available Not Available No t Available cephalexin 250 mg capsule 05/16 completed Not Available Not Available Not Available hydrocodone 5 mg-acetamin ophen 325 mg tablet 03/22 completed Not Available Not Available Not Available ondansetron HCl 4 mg tablet 05/16 completed Not Available Not Available Not Available prednisone 20 mg tablet take 3 tabs po daily x 2 day then 2 tabs po daily x 2 days then 1 tab po daily x 2 days then 1/2 tab po daily x 2 days. active Not Available Not Available No t Available clonazepam 0.5 mg tablet TK 1 T PO BID PRN active Not Available Not Available No t Available acetaminoph en 300 mg-codeine 30 mg tablet Take 1 tablet every 6 hours by oral route as needed. 04/29 completed Not Available Not Available Not Available ciprofloxac in 500 mg tablet Take 1 tablet every 12 hours by oral route. 04/25 completed Not Available Not Available Not Available sulfamethox azole 800 mg-trimetho prim 160 mg tablet 05/16 completed Not Available Not Available Not Available tramadol 50 mg tablet TAKE 1 TABLET BY MOUTH EVERY 6 HOURS NEEDED 03/10 completed Not Available Not Available Not Available Kenalog 40 mg/mL suspension for injection Take 2 mL by injection route. 03/10 completed [facility]# [id number] Not Available Not Available Not Available nortriptyli ne 25 mg capsule 05/16 completed Not Available Not Available Not Available ofloxacin 0.3 % ear drops INSTILL 5 DROPS TO RIGHT EAR TWICE DAILY 08/02 completed Not Available Not Available Not Available amoxicillin 875 mg tablet TAKE 1 TABLET BY MOUTH TWICE DAILY FOR 10 DAYS 03/10 completed Not Available Not Available Not Available benzonatate 100 mg capsule 05/16 completed Not Available Not Available Not Available cephalexin 500 mg capsule Take 1 capsule every 6 hours by oral route. active Not Available Not Available No t Available neomycin-po lymyxin-dex ameth 3.5 mg/mL-10,00 0 unit/mL-0.1 % eye drops SHAKE LIQUID AND INSTILL 1 DROP IN BOTH EYES THREE TIMES DAILY FOR 10 DAYS DIRECTED 07/31 completed Not Available Not Available Not Available prednisone 50 mg tablet TAKE 1 TABLET BY MOUTH EVERY DAY FOR 5 DAYS 07/31 completed Not Available Not Available Not Available fluoxetine 10 mg capsule 05/16 completed Not Available Not Available Not Available diclofenac sodium 75 mg tablet,angel yed release Take 1 tablet twice a day by oral route with meal(s). 2022 active Not Available Not Available Not Avai lable cephalexin 500 mg tablet Take 1 tablet every 8 hours by oral route. 08/26 completed Not Available Not Available Not Available codeine 10 mg-guaifene sin 100 mg/5 mL oral liquid TAKE 10 ML BY MOUTH AT BEDTIME NEEDED 07/31 completed Not Available Not Available Not Available levofloxaci n 500 mg tablet Take 1 tablet every 24 hours by oral route. active Not Available Not Available No t Available methylpredn isolone 4 mg tablets in a dose pack FOLLOW PACKAGE DIRECTION S 04/25 completed Not Available Not Available Not Available Vitamin D2 1,250 mcg (50,000 unit) capsule 05/16 completed Not Available Not Available Not Available ondansetron 4 mg disintegrat ing tablet Place 1 tablet every 4-6 hours by transling ual route as needed. active Not Available Not Available No t Available fluoxetine 20 mg capsule 05/16 completed Not Available Not Available Not Available sertraline 50 mg tablet TK 1 T PO QD active Not Available Not Available No t Available amoxicillin 875 mg-michelle m clavulanate 125 mg tablet TAKE 1 TABLET BY MOUTH TWICE DAILY 07/31 completed Not Available Not Available Not Available neomycin 3.5 mg/g-polymy christos B 10,000 unit/g-dexa meth 0.1 % eye oint APPLY A SMALL AMOUNT ON AFFECTED EYELID BID active Not Available Not Available No t Available moxifloxaci n 0.5 % eye drops INSTILL 1 DROP INTO AFFECTED EYE(S) BY OPHTHALMI C ROUTE 3 TIMES PER DAY 04/25 completed Not Available Not Available Not Available Abilify 5 mg tablet 05/16 completed Not Available Not Available Not Available bupropion HCl XL 150 mg 24 hr tablet, extended release TAKE 1 TABLET BY MOUTH EVERY DAY 07/27 completed Not Available Not Available Not Available nitrofurant oin monohydrate /macrocryst als 100 mg capsule TAKE 1 CAPSULE BY MOUTH EVERY 12 HOURS 04/25 completed Not Available Not Available Not Available Excedrin Migraine prn 2021 active Not Available Not Available Not Avai lable Vitals Date Recorded Body mass index (BMI) Body height Oxygen saturation Oxygen saturation in Arterial blood by Pulse oximetry Heart rate Body temperature Body weight Systolic blood pressure Diastolic blood pressure Provider Name and Address Organization Details Last Updated DateTime 1 26.7 kg/m2 160.02 cm 98 % 98 % 70 /min 98.7 [degF] 05068.6 5 g 100 mm[Hg] 70 mm[Hg] Not Available [facility] 3 10:41:25 Date Recorded Body mass index (BMI) Body height Oxygen saturation Oxygen saturation in Arterial blood by Pulse oximetry Heart rate Body temperature Body weight Systolic blood pressure Diastolic blood pressure Provider Name and Address Organization Details Last Updated DateTime 2 27.5 kg/m2 160.02 cm 98 % 98 % 97 /min 98.6 [degF] 45357.8 2 g 122 mm[Hg] 72 mm[Hg] Not Available [facility] 3 10:41:25 Date Recorded Body mass index (BMI) Body height Oxygen saturation Oxygen saturation in Arterial blood by Pulse oximetry Heart rate Respiratory rate Body temperature Body weight Systolic blood pressure Diastolic blood pressure Provider Name and Address Organization Details Last Updated DateTime 2 28.3 kg/m2 160.02 cm 99 % 99 % 84 /min 16 /min 97.6 [degF] 41042.7 8 g 120 mm[Hg] 80 mm[Hg] Not Available [facility] 3 10:41:25 Date Recorded Body height Body temperature Body mass index (BMI) Body weight Respiratory rate Oxygen saturation Oxygen saturation in Arterial blood by Pulse oximetry Heart rate Systolic blood pressure Diastolic blood pressure Provider Name and Address Organization Details Last Updated DateTime 3 160.02 cm 97.4 [degF] 27.6 kg/m2 58899.4 1 g 16 /min 96 % 96 % 81 /min 120 mm[Hg] 78 mm[Hg] [employer] [facility] [place] [facility] 3 10:02:36 Social History Question Answer Notes LastModified by Organizat ion Details LastModified Time Tobacco Smoking Status Never Smoker Not Available [facility] 10/11/2022 10:40:23 Do You Have An Advance Directive? No [id number] Information not available 10/11/2022 What Is Your Level Of Alcohol Consumption? Occasional [id number] Information not available 10/11/2022 If You Are , What Was Your Level Of Alcohol Consumption Prior To ? None [id number].[id number] Information not available 10/11/2022 Do You Wear A Helmet When Biking? No MIGRATION.249089 7317 Information not available 10/11/2022 What Is Your Level Of Caffeine Consumption? Occasional [id number].[id number] 7223 Information not available 10/11/2022 In The 14 Days Before Symptom Onset, Have You Had Close Contact With A Laboratory-confirm ed COVID-19 While That Case Was Ill? No [id number].[id number] 0461 Information not available 10/11/2022 In The 14 Days Before Symptom Onset, Have You Had Close Contact With A Person Who Is Under Investigation For COVID-19 While That Person Was Ill? No MIGRATION.[id number] 2153 Information not available 10/11/2022 Are You Currently Employed? Yes [email or web address] Information not available 07/31/2023 What Type Of Diet Are You Following? REGULAR [id number].[id number] 0822 Information not available 10/11/2022 What Is The Highest Grade Or Level Of School You Have Completed Or The Highest Degree You Have Received? [id number] MIGRATION.[id number] Information not available 10/11/2022 What Is Your Occupation? [employer] MIGRATION.[id number] 5275 Information not available 10/11/2022 Have There Been Any Changes To Your Family Or Social Situation? No MIGRATION.812866 6610 Information not available 10/11/2022 Are There Any Guns Present In Your Home? No MIGRATION.278568 6521 Information not available 10/11/2022 Do You Use Insect Repellent Routinely? Yes MIGRATION.946146 4323 Information not available 10/11/2022 What Was The Date Of Your Most Recent Tobacco Screening? 03/22/2022 MIGRATION.[id number] 4249 Information not available 10/11/2022 Have You Ever Been Counseled For Unhealthy Alcohol Use? No MIGRATION.201326 1481 Information not available 10/11/2022 What Is Your Relationship Status? MIGRATION.007808 7189 Information not available 10/11/2022 Do You Use Your Seat Belt Or Car Seat Routinely? Yes MIGRATION.[id number] 3288 Information not available 10/11/2022 Do You Have Smoke And Carbon Monoxide Detectors In Your Home? Yes MIGRATION.761485 0761 Information not available 10/11/2022 Are You Passively Exposed To Smoke? No MIGRATION.896133 2333 Information not available 10/11/2022 Are There Any Smokers In Your House? No MIGRATION.052061 3026 Information not available 10/11/2022 Do You Feel Stressed (tense, Restless, Nervous, Or Anxious, Or Unable To Sleep At Night)? [id number] MIGRATION.124406 7734 Information not available 10/11/2022 Do You Use Any Illicit Or Recreational Drugs? No MIGRATION.210873 9615 Information not available 10/11/2022 Do You Use Sunscreen Routinely? Yes MIGRATION.453483 2642 Information not available 10/11/2022 Has Tobacco Cessation Counseling Been Provided? No MIGRATION.821754 4433 Information not available 10/11/2022 Have You Recently Traveled Abroad? No MIGRATION.763412 2626 Information not available 10/11/2022 Do You Have Any Dietary Restrictions? No MIGRATION.228218 3941 Information not available 10/11/2022 Do You Or Have You Ever Used Any Other Forms Of Tobacco Or Nicotine? No MIGRATION.717853 2356 Information not available 10/11/2022 Sex: Unknown Functional Status Question Answer Note LastModified by Organizat ion Details LastModified Time What is your exercise level? Occasional [id number] Information not available 10/11/2022 Mental Status None recorded. Family History Relationship Description Onset Age of this Age Resolved Age Notes LastModified by Organization Details LastModified Time Mother Coronary arterioscler osis [id number] Not available 10/11/2022 10:41:03 Mother Hypertensive disorder [id number] Not available 10/11/2022 10:41:03 Mother Hyperlipidem ia MIGRATION.515 [id number] Not available 10/11/2022 10:41:03 Mother Autoimmune disease [id number] Not available 10/11/2022 10:41:03 Mother Diabetes mellitus [id number] Not available 10/11/2022 10:41:03 Medical History Condition Response EYE PROBLEMS Y HEADACHES/MIGRAINES Y ANXIETY DISORDER Y DEPRESSION (INCLUDING POST ) Y Gynecological History Statement/Question Response Menses Monthly Y Date of Last Pap 06/18/2019 Current Control Method Tubal Ligat ion Sexually Active? N Obstetrics History GPAL:G 4 P 0 0 0 4 Type Value Living 4 Total 4 Immunizations Vaccine Type Date Status Note Provider Nam e and Address Organization Details Recorded Time Influenza, split virus, quadrivalent, PF 05/26/2019 completed Not Available [facility] 10:45:[facility] Past Encounters Encounter ID Performer Location Encounter Start Date Encounter Closed Date Diagnosis/Indication Diagnosis SNOMED-CT Code Diagnosis ICD10 Code Diagnosis Note [id number] [facility] [address] [place] [address] 04/29/2021 00:00:00 05/01/2021 11:31:00 [id number] [facility] [address] [place] [address] 10/31/2021 00:00:00 11/02/2021 17:45:07 [id number] [facility] [address] [place] [address] 03/22/2022 00:00:00 04/11/2022 21:01:43 [id number] [facility] Internal Med Jennifer Dowling [address] [place] [address] 07/28/2022 00:00:00 08/09/2022 17:24:52 [id number] BELTRAN Allan [facility] Internal Med Jennifer Dowling [address] [place] [address] 08/02/2023 09:54:11 08/02/2023 10:55:44 Adult health examination 071620224 Z00.01 well exam completed, fasting labs due Diabetes m ellitus screening 286809793 Z13.1 Cholesterol screening 27 0155979 Z13.220 Thyroid di sorder screening 899572543 Z13.29 Medial epi condylitis of left elbow joint [id number] 75891 M77.02 start nsaid tx course. Multiple joint pain 3567 8005 M25.50 screening RA panel, CRP and ESR. Idiopathic urticaria 422 68013 L50.1 referral to dredge master and immunologi st. check PILAR comp panel, immunoglob ulin E, Complement 3 and 4, CBC and CMP. Health Concerns Section Related Observation LastModified by Organization Detai ls LastModified Time None Recorded Concern Status LastModified by Organization Details LastModified Time None Recorded Advance Directives Directive N: Payers Encounter Date Sequence Insurance Name Policy Number Policy Early Covered Member ID Early Member ID Guarantor Name 08/02/2023 1 [place] [id number] Himanshu Cody [id number] Lelia Cody 08/02/2023 2 [place] Lelia Cody [id number] Lleia Cody Notes Date Note Type Note Provider Name and Address Organization Details Recorded Time 04/29/2021 text/html Generic HPI TemplateReported bypatient.Notes:Pt is here today for her wellness exam, doing fine, no complaints Not Available [facility] 05/01/2021 11:31:00 03/22/2022 text/html Anxiety/Depressi onRepo rted bypatient.Quality:symp toms worse in the evening;symptoms worse during the day;mood worse;increased anxiety;panic symptoms Severity:denies suicidal ideations; able to maintain relationships;interfer ence with household activities;interferenc e with sleep Duration:frequent Onset/Timing:still present Context:major life stressors Modifying Factors:medications as directed Associated Symptoms:denies homicidal ideations; no significant weight gain; no visual/auditory hallucinations; no delusions; no crying spells; no panic; no isolation; no apathy; maintaining functionality;eating less;eating more;emotional lability;high irritability;anxiety;h ypersensitivity;depres bettina;loneliness;insomn ia;sleep disturbances;feeling guilty;despair/hopeles sness;social withdrawal;decreased effectiveness/producti vity;anxiety with excessive sweating;trembling or shaking (tremor);headaches;dec reased energy;poor concentration Not Available [employer] 04/11/2022 21:01:43 07/28/2022 text/html Arm PainReported bypatient.Location:lef t Quality:aching; dull Severity:pain level /10; worst pain 5/10 Duration:3 weeks Timing:acute Context:cannot identify Alleviating Factors:nothing helps Aggravating Factors:twisting; gripping; extending Associated Symptoms:no numbness; no tingling; no swelling; no redness; no warmth; no ecchymosis; no catching/locking; no popping/clicking; no buckling; no grinding; no instability; no drainage; no fever; no chills; no weight loss; no change in bowel/bladder habits;weakness(but favoring it);radiation down armUrinary FrequencyReported bypatient.Severity:mod erate Duration:more then normal Onset/Timing:actual date: (1 week ago) Associated Symptoms:no abdominal pain; no back pain; no chills; no constipation; no diarrhea; no dribbling; no pain with urination; normal emptying of bladder; no blood in the urine; no hesitancy; normal libido; no nausea; no vomiting; no nocturia; no straining; no incontinence; no fever; no feelings of urgency;urine odor;urge incontinence Not Available [employer] 08/09/2022 17:24:52 08/02/2023 text/html Anxiety/Depressi onRepo rted bypatient.Quality:does nt matter time of day Severity:denies suicidal ideations; able to maintain relationships;interfer ence with household activities;interferenc e with sleep;interference with work Duration:symptoms lasting over 2 weeks Onset/Timing:still present Context:no major life stressors Associated Symptoms:denies homicidal ideations; no significant weight gain; no significant weight loss; no visual/auditory hallucinations; no delusions; no shortness of breath Wellness BELTRAN Allan [address], [place], [address], [place] [facility] 08/07/2023 17:54:04 OBGyn Episode No OBEpisode recorded.
--- OUTSIDE RECORDS SUMMARY | 2024-11-10 11:52 | XMS_ITS | Clinical Summary ---
Author Organization [facility] Address [address] [place] [address] Care Team Providers Care Dye Room Helper Name Role Phone Unavailable Primary Care Provider Unavailabl e Source Comments [facility],non-owned Affiliates and Associated Physician Practices is amultiple site organization consisting of ambulatory clinics and hospital sitesin [place], [place], [place] and [place]. This disclosure is being madepursuant to the Care Everywhere program and may not contain all information available regarding this patient. Last updated 18.[facility] Social History Tobacco Use Types Packs/Day Years Used Date Smoking Tobacco: Never Assessed Sex and Gender Information Value Date Recorded Sex Assigned at Not on file Gender Identity Not on file Sexual Orientation Not on file Plan of Treatment Health Maintenance Due Date Last Done Comments LIPID TESTING 1984 MAMMOGRAM 1984 PAP SMEAR 1984 HIV SCREENING 1999 HEPATITIS C SCREENING 03/03/2002 DTAP/TDAP/TD VACCINES (1 - Tdap) 2003 HEPATITIS B VACCINE (1 of 3 - 19+ 3-dose series) 2003 COVID-19 VACCINE ( - 2023-2 5 season) 2024 INFLUENZA VACCINE (#1) 2024 DEPRESSION SCREENING 08/13/2024 ZOSTER VACCINE (1 of 2) 2034 HIB VACCINE Aged Out No longer eligi ble based on patient's age to complete this topic HPV VACCINE Aged Out No longer eligi ble based on patient's age to complete this topic MENINGOCOCCAL (Group B) VACC INE SHARED DECISION-MAKING Aged Out No longer eligibl e based on patient's age to complete this topic MENINGOCOCCAL GROUPS A/C/Y/W VACCINE Aged Out No longer eligible b ased on patient's age to complete this topic PNEUMOCOCCAL VACCINE Aged Out No long er eligible based on patient's age to complete this topic
--- OUTSIDE RECORDS SUMMARY | 2024-11-10 11:52 | XMS_ITS | Clinical Summary ---
Author Organization [facility] Address [address], [facility] [address] [place] [address] Phone Care Team Providers Care Web Solutions Architect Name Role Phone Chelly Melendrez Primary Care Provider Fátima Wiley APRN, CATH LABORATORY TECHNICIAN Unavailable Allergies Active Allergy Reactions Criticality Noted Date Comments Sulfa Antibiotics Rash 08/27/2020 Vancomycin Rash 08/27/2020 Hives and joint pain Medications Acetaminophen-Ca ffeine (EXCEDRIN TENSION HEADACHE PO) Take by mouth. Active Multiple Vitamin (MULTI-VITAMIN PO) Take by mouth. Active ciprofloxacin (CIPRO) 500 MG Tablet TAKE 1 TABLET BY MOUTH EVERY 12 HOURS 03/05/2023 Active Active Problems No known active problems Immunizations Immunization Administration Dates Next Due Hepatitis A, Pediatric, Unspecified Formulation 05/05/2002 Influenza, Seasonal, Injectable, Undefined 05/16,08/29/2012 Family History Medical History Relation Name Comments Breast Cancer Maternal Grandmother Relation Name Status Comments Maternal Grandmother Social History Tobacco Use Types Packs/Day Years Used Date Smoking Tobacco: Never Smokeless Tobacco: Never Alcohol Use Standard Drinks/Week Comments Yes 0 (1 standard drink = 0.6 oz pur e alcohol) 1x yearly Sexually Active Control Partners Comments Yes Comments No Sex and Gender Information Value Date Recorded Sex Assigned at Not on file Legal Sex Female 9:34 PM CDT Gender Identity Not on file Sexual Orientation Not on file Last Filed Vital Signs Vital Sign Reading Time Taken Comments Blood Pressure 104/76 03/06/2023 3:15 PM CDT Pulse 82 03/06/2023 3:15 PM CDT Temperature 37.6 C (99.6 F) 03/06/2023 3:15 PM CDT Respiratory Rate 14 03/06/2023 3:15 PM CDT Oxygen Saturation 98% 03/06/2023 3:15 PM CDT Inhaled Oxygen Concentration - - Weight 68.9 kg (152 lb) 03/06/2023 3:15 PM CDT Height 160 cm (5' 3 ) 03/06/2023 3:15 PM CDT Body Mass Index 26.93 03/06/2023 3:15 PM CDT Plan of Treatment Health Maintenance Due Date Last Done Comments Hepatitis C Virus (HCV) Screening 1984 Mammogram 1984 TdaP Immunization 1984 Hepatitis B Immunization (1 of 3 - 19+ 3-dose series) 2003 Pap Smear 2005 Cervical Cancer Screening (CCS) 2014 HPV/Cotest 2014 Discussion re Starting/Frequency of Mammograms 2024 Influenza Immunization (#1) 04/13/202411/2012, 08/29/2012 SARS-COV-2 Immunization ( season) 2024 04/10/2021, 11/30/2020 Respiratory Syncytial Virus (RSV) Immunization (Adult) (1 - 1-dose 75+ series) 2059 Meningococcal Immunization (ACWY) Aged Out No longer eligible b ased on patient's age to complete this topic Pneumococcal Immunization Combined Aged Out No longer eligible b ased on patient's age to complete this topic Rotavirus Immunization Aged Out No lo nger eligible based on patient's age to complete this topic Insurance [facility] MEDICAID [place] Care Teams Web Solutions Architect Relationship Specialty Start Date End Date Chelly Melendrez PA PCP - General Family Medicine 08/11/20 Fátima Wiley APRN, CATH LABORATORY TECHNICIAN [address] [place] [address] Nurse Practitioner Advanced Practice Nurse 01/25/23
--- OUTSIDE RECORDS SUMMARY | 2024-11-10 11:52 | XMS_ITS | Data Portability ---
[facility] Address [address] [place] [address] Assessment No assessment recorded. Plan of Treatment Reminders Order Date Submit Date Provider Last Modified By Organization Details Last Modified Time Details Appointments None recorded. Lab None recorded. Referral None recorded. Procedures None recorded. Surgeries None recorded. Imaging None recorded. Medication Orders triamcinolo ne acetonide 0.1 % topical cream 2023 [facility] [id number], [address], [place], [id number], 13:07:20 doxycycline hyclate 100 mg capsule 2023 [facility] [id number], [address], [place], [phone], 13:07:19 Patient TargetsNo targets recorded. Patient InstructionsNo instructions recorded. Reason for Referral None Reported. Problems Name Problem SNOMED Code Status Onset Date Resolution Date Notes Provider Name and Address Organization Details Recorded Time Mixed anxiety and depressive disorder 554202442 Active Dena Coppola [facility], [facility] 12:55:57 Problem Notes None recorded. Procedures Surgical History Date Name Laterality Status Provider Name and Address Organization Details Recorded Time special ENT procedures completed Dena Coppola [facility] 10/15/2023 12:58:43 dilation and curettage completed Dena Coppola [facility] 10/15/2023 12:59:45 repair of meniscus completed Frankie Coppola [facility] 10/15/2023 12:59:52 section completed Dena Coppola [facility] 10/15/2023 13:00:04 [facility] 13:00[facility]05 [facility] 13:00:06 [facility] 13[facility]00:07 [facility] 13:00:11 [facility] 13:00:31 [facility] 13:00:44 Imaging Results None recorded. Procedure Notes None recorded. Medical Equipment None Reported. Allergies Allergen ID Allergen Name Allergen Category Reaction Reaction Severity Criticality Documentation Date Start Date Code Code System Note Provider Name and Address Organization Details Recorded Time 898819 Substance with sulfonami de structure and antibacte rial mechanism of action (substanc e) medicatio n Not available Not available Not available 10/15/2023 84347 8003 SNOMED Not Available Not Available Not Available 805765 vancomyci n medicatio n Not available Not available Not available 10/15/2023 19610 RxNorm Not Available Not Available Not Available Medications Name Sig Start Date Stop Date Status Note LastModified by Organization Details LastModified Time doxycycline hyclate 100 mg capsule TAKE 1 CAPSULE BY MOUTH TWICE DAILY WITH MEALS active Not Available Not Available No t Available ciprofloxac in 500 mg tablet TAKE 1 TABLET BY MOUTH EVERY 12 HOURS 06/15 completed Not Available Not Available Not Available tramadol 50 mg tablet TAKE 1 TABLET BY MOUTH EVERY 6 HOURS NEEDED active Not Available Not Available No t Available triamcinolo ne acetonide 0.1 % topical cream APPLY A THIN LAYER TOPICALLY TO AFFECTED AREAS OF TORSO TWICE DAILY active Not Available Not Available No t Available ofloxacin 0.3 % ear drops INSTILL 5 DROPS TO RIGHT EAR TWICE DAILY 06/15 completed Not Available Not Available Not Available amoxicillin 875 mg tablet TAKE 1 TABLET BY MOUTH EVERY 12 HOURS FOR 10 DAYS active Not Available Not Available No t Available neomycin-po lymyxin-dex ameth 3.5 mg/mL-10,00 0 unit/mL-0.1 % eye drops 06/15 completed Not Available Not Available Not Available prednisone 50 mg tablet TAKE 1 TABLET BY MOUTH EVERY DAY FOR 5 DAYS 06/15 completed Not Available Not Available Not Available diclofenac sodium 75 mg tablet,angel yed release TAKE 1 TABLET BY MOUTH TWICE DAILY WITH MEALS 06/15 completed Not Available Not Available Not Available codeine 10 mg-guaifene sin 100 mg/5 mL oral liquid TAKE 10 ML BY MOUTH AT BEDTIME NEEDED 06/15 completed Not Available Not Available Not Available methylpredn isolone 4 mg tablets in a dose pack FOLLOW PACKAGE DIRECTION S active Not Available Not Available No t Available amoxicillin 875 mg-potassiu m clavulanate 125 mg tablet TAKE 1 TABLET BY MOUTH TWICE DAILY 06/15 completed Not Available Not Available Not Available moxifloxaci n 0.5 % eye drops 06/15 completed Not Available Not Available Not Available Vitals Date Recorded Body height Body mass index (BMI) Body weight Respiratory rate Body temperature Heart rate Oxygen saturation Oxygen saturation in Arterial blood by Pulse oximetry Systolic blood pressure Diastolic blood pressure Provider Name and Address Organization Details Last Updated DateTime 4 160.02 cm 28.5 kg/m2 70732.3 7 g 17 /min 98 [degF] 80 /min 97 % 97 % 118 mm[Hg] 80 mm[Hg] Myriam Hoover MA [facility] 4 12:39:41 Social History Question Answer Notes LastModified by Organizat ion Details LastModified Time Tobacco Smoking Status [facility]15[facility]2023 12:57:26 Do You Have An Advance Directive? No [email or web address] Information n ot available 10/15/2023 What Is Your Level Of Alcohol Consumption? Occasional [email or web address] Information not available 10/15/2023 What Is Your Level Of Caffeine Consumption? Occasional [email or web address] Information not available 10/15/2023 In The 14 Days Before Symptom Onset, Have You Had Close Contact With A Laboratory-confirm ed COVID-19 While That Case Was Ill? No [email or web address] Information n ot available 10/15/2023 In The 14 Days Before Symptom Onset, Have You Had Close Contact With A Person Who Is Under Investigation For COVID-19 While That Person Was Ill? No [email or web address] Information not available 10/15/2023 Have You Been To An Area Known To Be High Risk For COVID-19? No [email or web address] Information not available 10/15/2023 Are You Currently Employed? Yes [email or web address] Information not available 10/15/2023 What Type Of Diet Are You Following? REGULAR [email or web address] Information n ot available 10/15/2023 What Was The Date Of Your Most Recent Tobacco Screening? 05/29/2024 [email or web address] Information not available 05/29/2024 What Is Your Relationship Status? [email or web address] Information not available 10/15/2023 Do You Use Your Seat Belt Or Car Seat Routinely? Yes [email or web address] Information not available 10/15/2023 Do You Have Smoke And Carbon Monoxide Detectors In Your Home? Yes [email or web address] Information not available 10/15/2023 Do You Use Any Illicit Or Recreational Drugs? No Information not available 10/15/2023 Do You Use Sunscreen Routinely? Yes [email or web address] Information not available 10/15/2023 Do You Or Have You Ever Used Any Other Forms Of Tobacco Or Nicotine? No Information not available 10/15/2023 Sex: Female Functional Status Question Answer Note LastModified by Organizat ion Details LastModified Time Are you able to care for yourself? Yes [email or web address] Information not available 10/15/2023 What is your exercise level? Occasional [email or web address] Information not available 10/15/2023 Mental Status None recorded. Family History Relationship Description Onset Age of this Age Resolved Age Notes LastModified by Organization Details LastModified Time Mother Coronary arterioscler osis [email or web address] Not available 10/14 12:56:25 Mother Hypertensive disorder [email or web address] Not available 10/14 12:56:32 Mother Hyperlipidem ia [email or web address] Not available 10/14 12:56:40 Mother Autoimmune disease [email or web address] Not available 10/14 12:56:48 Mother Diabetes mellitus [email or web address] Not available 10/14 12:56:58 Medical History Condition Response Depression Y Anxiety Disorder Y Headaches Y Gynecological HistoryNo gynecological history recorded. Obstetrics History GPAL:G 0 P 0 0 0 0 Past Encounters Encounter ID Performer Location Encounter Start Date Encounter Closed Date Diagnosis/Indication Diagnosis SNOMED-CT Code Diagnosis ICD10 Code Diagnosis Note [id number] BELTRAN Allan [facility] - [place] [address] [place] [address] 05/29/2024 12:32:47 06/02/2024 14:58:43 Acute folliculitis 907059176 L73.9 Start triamcinol one 0.1% topical cream twice daily to all the affected areas of the torso and extremitie s. For secondary folliculit is start doxycyclin e 100 mg capsules twice daily for treatment course as directed Health Concerns Section Related Observation LastModified by Organization Detai ls LastModified Time None Recorded Concern Status LastModified by Organization Details LastModified Time None Recorded Advance Directives Directive N: Payers Encounter Date Sequence Insurance Name Policy Number Policy Early Covered Member ID Early Member ID Guarantor Name 05/29/2024 1 [facility] [id number] Lelia Cody [id number] Lelia Cody 05/29/2024 2 [place] [facility] Lelia Cody [id number] Lelia Cody Notes Date Note Type Note Provider Name and Address Organization Details Recorded Time 05/29/2024 text/html Patient has been ill recently and has been on antibiotic therapy. She reports that she is always having some type of skin reaction secondary to antibiotics. More of a sensitivity than an allergy. She has now developed pruritic spots on her torso and extremities and it is similar reaction that she has had in the past with other antibiotics. She is here today because she can not take the itching anymore. She is currently had steroids as well from urgent care. BELTRAN Allan Attn: Accounting[address] [facility], [place], [address], [facility] 06/15/2024 15:50:57 OBGyn Episode No OBEpisode recorded.
--- OUTSIDE RECORDS SUMMARY | 2024-11-10 11:52 | XMS_ITS | Referral Summary ---
Author Organization [facility] Main [facility] s Address [address] [place] [address] Care Team Providers Care Jewelry Sales Associate Name Role Phone Chelly Melendrez Primary Care Pr ovider Allergies Active Allergy Reactions Criticality Noted Date Comments Sulfa (Sulfonamide Antibiotics) Rash Medium 08/13 Vancomycin Rash,Joint pain Medium Medications aspirin/acetamino phen/caffeine (EXCEDRIN MIGRAINE ORAL) Take 2 tablets by mouth as needed Active ondansetron ODT (ZOFRAN-ODT) 4 mg disintegrating tablet Take 1 tablet (4 mg total) by mouth every 8 (eight) hours as needed for nausea or vomiting 20 tablet 02/17/20 Active Additional Information Patient not taking.Reported on 10/06/2022 HYDROcodone-aceta minophen (NORCO) 5-325 mg per tabletIndications :Pain Take 1 tablet by mouth every 6 (six) hours as needed for pain 10 tablet 02/17/20 Active Additional Information Patient not taking.Reported on 10/06/2022 bacitracin-polymy christos B (bacitracin zinc-polymyxin B) ointment Apply topically 2 (two) times a day to incision 15 g 1 02/29/20 22 Active Additional Information Patient not taking.Reported on 10/06/2022 buPROPion XL (WELLBUTRIN XL) 150 mg 24 hr tablet Take 150 mg by mouth daily 03/22/20 22 Active ibuprofen (ADVIL,MOTRIN) 800 mg tablet ibuprofen 800 mg tablet TAKE 1 TABLET BY MOUTH THREE TIMES DAILY NEEDED FOR PAIN Active cephalexin (KEFLEX) 500 mg capsule Take 500 mg by mouth every 6 (six) hours 03/22/20 Active cyclobenzaprine (FLEXERIL) 10 mg tablet cyclobenzaprine 10 mg tablet TAKE 1 TABLET BY MOUTH EVERY 8 HOURS CUT IN HALF IF TO SEDATING Active nitrofurantoin monohydrate (MACROBID) 100 mg capsule nitrofurantoin monohydrate/macroc rystals 100 mg capsule TAKE 1 CAPSULE BY MOUTH EVERY 12 HOURS Active ofloxacin (FLOXIN) 0.3 % otic solution Administer 5 drops into the right ear 2 (two) times a day 10 mL 3 07/13/[address] (VOLTAREN) 75 mg EC tablet Take 1 tablet (75 mg total) by mouth 08/02/20 23 Active Active Problems Problem Noted Date Diagnosed Date Impacted cerumen of right ear 11/12/2023 Acute urinary tract infection 07/28/2022 Fatigue 07/28/2022 Lateral epicondylitis of left elbow 07/28/2022 Nausea, vomiting and diarrhea 05/12/2022 Mixed anxiety and depressive disorder 03/22/2022 Paronychia of finger 03/22/2022 Right chronic otitis media 12/30/2021 Overview (12/30/2021): Added automatically from request for surgery [id number] Marginal perforation of tympanic membrane, right 12/30/2021 Overview (12/30/2021): Added automatically from request for surgery [id number] Mixed conductive and sensori neural hearing loss of right ear 12/30/2021 Overview (12/30/2021): Added automatically from request for surgery [id number] Rash 10/31/2021 Immunizations Immunization Administration Dates Next Due Hep A, Ped Unspecified 05/05/2002 Influenza, Trivalent, IM (MDV) 05/16/2013,2012 Social History Tobacco Use Types Packs/Day Years Used Date Smoking Tobacco: Never Smokeless Tobacco: Never Tobacco Cessation:Counseling Given: Not Answered Alcohol Use Standard Drinks/Week Comments No 0 (1 standard drink = 0.6 oz pur e alcohol) AUDIT-C Answer Date Recorded Q1: How often do you have a drink containing alcohol? Never 02/09/2022 Q2: How many drinks containi ng alcohol do you have on a typical day when you are drinking? Patient does not drink Q3: How often do you have si x or more drinks on one occasion? 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 Gender Identity Not on file Sexual Orientation Not on file Last Filed Vital Signs Vital Sign Reading Time Taken Comments Blood Pressure 111/75 06/13/2024 1:19 PM CDT Pulse 83 06/13/2024 1:19 PM CDT Temperature 37 C (98.6 F) 03/08/2022 2:41 PM CDT Respiratory Rate 18 06/13/2024 1:19 PM CDT Oxygen Saturation 93% 02/16/2022 6:15 PM CDT Inhaled Oxygen Concentration - - Weight 72.5 kg (159 lb 12.8 oz) 06/13/2024 1:19 PM CDT Height 158.8 cm (5' 2.5 ) 06/13/2024 1:19 PM CDT Body Mass Index 28.76 06/13/2024 1:19 PM CDT Plan of Treatment Not on file Insurance [facility] [place] [facility] [place] [employer] [id number] [place] [address] Care Teams Jewelry Sales Associate Relationship Specialty Start Date End Date Chelly Melendrez PA PCP - General Physician Rn Internal Medicine 12/27/21
--- OUTSIDE RECORDS SUMMARY | 2024-11-10 11:52 | XMS_ITS | Clinical Summary ---
Author Organization [facility] Address [address] [place] [address] Care Team Providers Care Devops Consultant Name Role Phone Unavailable Primary Care Provider Unavailabl e Social History Tobacco Use Types Packs/Day Years Used Date Smoking Tobacco: Never Assessed Comments Unknown Sex and Gender Information Value Date Recorded Sex Assigned at Not on file Legal Sex Female 6:23 PM CDT Gender Identity Not on file Sexual Orientation Not on file Plan of Treatment Health Maintenance Due Date Last Done Comments Cervical Cancer Screening Pa p Smear (Age 30 to 64) Every 3 Years 1984 Annual Physical 1987 Hepatitis C 2002 DTaP, Tdap and Td Vaccines ( 1 - Tdap) 2003 Hepatitis B Vaccines (1 of 3 - 19+ 3-dose series) 2003 Cervical Cancer Screening Pa p with HPV Testing (Age 30 to 64) Every 5 Years 2014 Cervical Cancer Screening with HPV 2014 Mammogram Screening 2024 COVID-19 Vaccine ( - 2023-2 5 season) 2024 Influenza Adult (#1) 2024 HPV Vaccines Aged Out No longer eligi ble based on patient's age to complete this topic Meningococcal B Vaccine Aged Out No l onger eligible based on patient's age to complete this topic Meningococcal Vaccine Aged Out No afwn duglas eligible based on patient's age to complete this topic Pneumococcal Vaccine: Pediat rics (0 to 5 Years) and At-Risk Patients (6 to 64 Years) Aged Out No longer eligible b ased on patient's age to complete this topic RSV Immunizations Under 20 Months Aged Out No longer eligible based on patient's age to complete this topic
--- OUTSIDE RECORDS SUMMARY | 2024-11-10 11:52 | XMS_ITS | Clinical Summary ---
Author Organization [facility] Main [facility] s Address [address] [place] [address] Care Team Providers Care Mobile Sales Technician Name Role Phone Chelly Melendrez Primary Care [...] by mouth every 6 (six) hours 03/22/20 22 Active cyclobenzaprine (FLEXERIL) 10 mg tablet cyclobenzaprine [...] (12/30/2021): Added automatically from request for surgery [id number] Marginal perforation of tympanic membrane, right 12/30/2021 Overview (12/30/2021): Added automatically from request for surgery [id number] Mixed conductive and sensori neural hearing loss of right ear 12/30/2021 Overview (12/30/2021): Added automatically from request for surgery [id number] Rash 10/31/2021 Immunizations Immunization Administration Dates Next Due Hep A, Ped Unspecified 05/05/2002 Influenza, Trivalent, IM (MDV) 05/16/2013,2012 Surgical History Surgery Date Site/Laterality Comments SECTION OTHER SURGICAL HISTORY ear surgeries EAR SURGERY 08/13/1989 - 08/12/19902004 KNEE ARTHROCENTESIS Right SECTION KNEE SURGERY Right DILATION AND CURETTAGE OF UTERUS Medical History Medical History Date Comments Depression Migraines Family History Medical History Relation Name Comments Autoimmune disease Mother Diabetes Other 1 Family history of Diabetes mellitus; Hypertension Other 2 Family history of Hypertension; Cancer Other 3 Other Other 3 Family history of auto immune disorder; Relation Name Status Comments Mother Other 1 Other 2 Other 3 Social History Tobacco Use Types Packs/Day Years [...] on file Legal Sex Female 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 Gender Identity Not on file Sexual Orientation Not on file Obstetrics History Last Filed Vital Signs Vital Sign Reading [...] 06/13/2024 1:19 PM CDT Plan of Treatment Health Maintenance Due Date Last Done Comments Breast Cancer Screening-Mammogram 1984 Cervical Cancer Screening 1984 Depression Screening 1984 Hepatitis C Screening 1984 DTaP/Tdap/Td Vaccine (1 - Tdap) 1995 Varicella Vaccines (1 of 2 - 13+ 2-dose series) 1997 Hepatitis B Screening 2002 Regular Well Visit/Exam 18-64 2002 Covid-19 Vaccine (2023-2 5 season) 2024 04/10/2021, 11/30/2020 Influenza Vaccine (#1) 2024 9, 05/16/2013, 08/29/2012 HPV Vaccines Aged Out No longer eligi ble based on patient's age to complete this topic Pneumococcal vaccine <65 Aged Out No longer eligible based on patient's age to complete this topic Insurance [facility] [employer] [id number] [place] [id number] Care Teams Mobile Sales Technician Relationship Specialty Start Date End Date Chelly Melendrez PA PCP - General Physician Claims Administrator 12/27/21
--- OUTSIDE RECORDS SUMMARY | 2024-11-10 11:52 | XMS_ITS | Continuity of Care Document ---
Author Organization [facility] Address [address] [place] [address] [address] [place] [address] Phone Care Team Providers Care Human Service Coordinator Name Role Phone Dillard OD, Moshe Unavailable Unavailable Procedures Procedure Date Office/outpatient Visit, [facility] Advance Directives Directive Yes / No Effective Date File Name No Information Encounters Encounter Description Practice Location Reason(s) For Visit Diagnoses Date Provider Providers Copied on Encounter Office/outpat ient Visit, [facility], [address] [place] [address] [address] [place], [place], [id number], [place] tel:[phone] [facility] No Information 7-200 7 Dillard OD Moshe. [address] , [address], [place], [address], [place]. tel:[phone] Family History Family Member Type Diagnosis Age At Onset No Information Payers Payer name Insurance type Covered democrat ID Authoriza tion(s) Medicaid [facility] [id number] Social History Type Description Quantity Date Captured Comments Sex Female Smoking Status No Information Chief Complaint And Reason For Visit No Information Reason For Referral Reason For Referral No Information History Of Present Illness Encounter Date Complaint History Of Prese nt Illness No Information Functional Status Date Functional Assessmen t No Information Instructions Date Instruction Additional Infor mation No Information Assessments Type Assessment Date No Information Patient Care Teams Name Effective Dates (start - stop) Status Members No Information
== END 2024-11-10 10:36 | disposition home or self-care (01) ==
LOC: ANHIMG 10:35
PROVIDERS: PCP Physician Assistant; Visit Provider Obstetrics & Gynecology
DX: N63.11 Unspecified lump in the right breast, upper outer quadrant (principal); N63.22 Unspecified lump in the left breast, upper inner quadrant
CPT/HCPCS: 76641; 77062; 77066; G0279

== ENCOUNTER 2025-07-30 08:00 | Outpatient (RCR) | payer OTHER, MEDICAID, SELFPAY ==
--- NOTE | 2025-06-18 09:43 | OTOPEVAL1 ---
Assessment and note entered by DANIELA Wilkerson/Jennifer, CHT Evaluation Information Assessment Status Evaluation Diagnosis Right lateral epicondylitis ICD-10 Condition Codes (OT) Pain in right elbow M25.521 Subjective Information Patient reports onset of pain in her right elbow for a couple of months. She had a steroid injection about a month ago and reports it didn't help very much. She reports difficulties with picking up her laptop, gripping, or gripping and lifting something heavy. 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 Reported Pain Level Pain Score 0: Self Report Additional Pain Score Comments No pain at rest. Pain can get up to 5/10 with heavier lifting. Assessment OT Clinical Summary Patient referred to OT with dx of right lateral epicondylitis. She presents with lateral elbow pain that is exacerbated with gripping and lifting tasks. She presents with a positive Cozen's test and tenderness with palpation to the supracondylar ridge and common extensor origin. Negative radial nerve tension test. Educated on the use of heat and ice, self soft tissue mobilization, and active ROM. Continued follow up indicated for continued use of modalities, IASTM, progressive therapeutic exercise, and education on activity modifications PRN to facilitate reduced pain, improved strength, and return to functional use for ADLs. Plan of Care Interventions Therapeutic Exercise,Manual Therapy,Neuro Re- education,Therapeutic Activities,Hot Pack/Cold Pack,Ultrasound,Paraffin OT Services Indicated Yes Treatment Frequency and 1x/week for 6 visits Duration Pt unable to follow up 2x/week due to her work schedule. These treatments will address the objective and functional deficits as defined above. The patient will be advanced safely and appropriately in order for the patient to progress towards his/her prior level of function. Additional exercises will be introduced and as well as a comprehensive home exercise program upon discharge, if needed, ?to ensure carryover of functional gains achieved in the clinic. This treatment plan has been reviewed and agreement upon by the patient.
--- NOTE | 2025-06-18 09:43 | OPREHPOC ---
Outpatient Therapy Plan of Care This is a Multidisciplinary Plan of Care that may contain components documented by all disciplines (PT, OT, and ST.) OT Problem 1 OT Problem #1 Knowledge Deficit OT Goal 1 Goal / Goal Update 1. Patient to be independent with instructed materials. Target Visit 6 OT Problem 2 OT Problem #2 Pain OT Goal 1 Goal / Goal Update 1. Patient to report reduced (R) elbow pain to 2/ 10 at worst in the last week during with ADLs, heavy lifting, etc. Target Visit 6 OT Problem 3 OT Problem #3 Impaired Strength OT Goal 1 Goal / Goal Update Patient to be able to complete progressive strengthening to increase gross UE strength and reduce lateral epicondylitis symptoms during ADLs as measured by: 1. progressing to green t-band for gross right shoulder strengthening x10 reps without pain 2. progressing to 2 lb. strengthening for the right wrist in all planes without pain 3. progressing to red putty for bobbin loose end finder strengthening in the right hand x5 minutes without pain Target Visit 8
--- NOTE | 2025-07-30 08:50 | OTOPDC ---
Assessment and note entered by Rudolph Vasquez, OTR/L, MILLA OT D/C Note 07/30/25 Assessment Status Discharge Diagnosis Right lateral epicondylitis ICD-10 Condition Codes (OT) Pain in right elbow M25.521 Subjective Information Patient reports progress in her right elbow, noting less pain with picking up her laptop, picking up heavy pans, and lifting heavy chairs at work. Patient reporting no pain at rest and 1/10 pain at worst in the last week. This has improved from 5/10 pain on a regular basis with any heavy lifting. Reported Pain Level Pain Score 0/10 at rest Assessment OT Clinical Summary Patient referred to OT with dx of right lateral epicondylitis. She has made excellent progress with therapy. Today she demonstrates improved functional strength and reports reduced pain, which has carried over into improved (R) UE use for lifting and gripping tasks during ADLs. She is reporting 1/10 pain at worst. With palpation the extensor tendons at the lateral epicondylitis are no longer painful, she reports they are mildly tender now. Reviewed strengthening HEP. Pt demonstrates independence with instructed materials. D/C OT with goals met. Plan of Care OT Services Indicated No
--- NOTE | 2025-07-30 08:51 | OPREHPOC ---
Outpatient Therapy Plan of Care This is a Multidisciplinary Plan of Care that may contain components documented by all disciplines (PT, OT, and ST.) OT Problem 1 OT Problem #1 Knowledge Deficit OT Goal 1 Goal / Goal Update 1. Patient to be independent with instructed materials. ---OT D/C 07/30/25--- 1. Met Target Visit 6 OT Problem 2 OT Problem #2 Pain OT Goal 1 Goal / Goal Update 1. Patient to report reduced (R) elbow pain to 2/ 10 at worst in the last week during with ADLs, heavy lifting, etc. ---OT D/C 07/30/25--- 1. Met Target Visit 6 OT Problem 3 OT Problem #3 Impaired Strength OT Goal 1 Goal / Goal Update Patient to be able to complete progressive strengthening to increase gross UE strength and reduce lateral epicondylitis symptoms during ADLs as measured by: 1. progressing to green t-band for gross right shoulder strengthening x10 reps without pain 2. progressing to 2 lb. strengthening for the right wrist in all planes without pain 3. progressing to red putty for career development specialist strengthening in the right hand x5 minutes without pain ---OT D/C 07/30/25--- 1. Met 2. Met 3. Met Target Visit 8
== END 2025-07-30 09:15 | disposition home or self-care (01) ==
LOC: ANHGOSHOT 08:00
PROVIDERS: PCP Physician Assistant; Visit Provider Physician Assistant
DX: M77.11 Lateral epicondylitis, right elbow (principal)
CPT/HCPCS: 97018; 97110; 97140; 97165